=== PATIENT | female | born 1945 | race African-American/Black ===

== ENCOUNTER 2023-11-02 06:14 | Day surgery (SDC) | payer OTHER ==
[2023-10-28 14:36] VITALS: BMI 26.2
[2023-11-02 09:36] LABS: BASO % 0.5 % (0-2.0); EOS % 4.8 % (0-4.5); HEMATOCRIT 35.9 % (32.4-45.2); HEMOGLOBIN 12.1 GM/dL (10.7-15.3); LYMPH % 32.5 % (8-40); MCH 29.6 pg (25.7-33.7); MCHC 33.6 g/dl (32.0-36.0); MEAN PLT VOLUME 8.9 fl (7.5-11.1); MONO % 12.8 % (3.8-10.2); NEUT % 49.4 % (42.8-82.8); PLATELET COUNT 202 10^3/uL (134-434); RBC 4.08 M/mm3 (3.60-5.2); RDW 14.6 % (11.6-15.6); WHITE BLOOD COUNT 6.6 K/mm3 (4.0-10.0)
[2023-11-02 09:38] LABS: INR 1.16 (0.83-1.09); PROTHROMBIN TIME (PATIENT) 13.1 SEC (9.7-13.0)
[2023-11-02 09:58] LABS: CALCIUM 8.9 mg/dL (8.5-10.1)
[2023-11-02 09:59] LABS: BLOOD UREA NITROGEN 9.4 mg/dL (7-18)
[2023-11-02 10:02] LABS: CREATININE 0.7 mg/dL (0.55-1.3)
[2023-11-02] MEDS ORDERED: MIDAZOLAM HCL 2 MG/2 ML SINGLE DOSE VIAL ONE (12:15)
[2023-11-02] MEDS ORDERED: FENTANYL CITRATE/PF 50 MCG/ML VIAL ONE (12:15)
[2023-11-02] MEDS: FENTANYL CITRATE/PF 50 MCG/ML VIAL IVPUSH ONE (12:16)
[2023-11-02] MEDS: MIDAZOLAM HCL 2 MG/2 ML SINGLE DOSE VIAL IVPUSH ONE (12:16)
[2023-11-02 19:35] VITALS: RESP 20; TEMP 97.2
[2023-11-02 19:44] VITALS: BP 134/67; PULSE 69
== END 2023-11-02 14:30 | disposition home or self-care (01) ==
LOC: JRADIR 06:14
PROVIDERS: ATTEND Internal Medicine Hematology & Oncology
PROC: 0JH63WZ Insertion of Totally Implantable Vascular Access Device into Chest Subcutaneous Tissue and Fascia, Percutaneous Approach (ICD-10-PCS; principal; 2023-11-02)
DX: C25.9 Malignant neoplasm of pancreas, unspecified (principal)
CPT/HCPCS: 36561; C1788; 36415; 80048; 85025; 85610

== ENCOUNTER 2023-11-09 09:53 | Day surgery (SDC) | payer OTHER ==
[2023-11-09] MEDS: LIDOCAINE 2.5%/PRILOCAINE 2.5% (5 Gram/TUBE) TP ONE (10:30)
[2023-11-09 10:41] LABS: BASO % 0.4 % (0-2.0); EOS % 3.6 % (0-4.5); HEMATOCRIT 35.8 % (32.4-45.2); HEMOGLOBIN 12.5 GM/dL (10.7-15.3); LYMPH % 35.2 % (8-40); MCH 30.2 pg (25.7-33.7); MCHC 34.8 g/dl (32.0-36.0); MEAN PLT VOLUME 8.7 fl (7.5-11.1); MONO % 12.3 % (3.8-10.2); NEUT % 48.5 % (42.8-82.8); PLATELET COUNT 195 10^3/uL (134-434); RBC 4.12 M/mm3 (3.60-5.2); RDW 14.7 % (11.6-15.6); WHITE BLOOD COUNT 5.9 K/mm3 (4.0-10.0)
[2023-11-09] MEDS: SODIUM CHLORIDE 250 ML IV ONE (10:50)
[2023-11-09] MEDS: PALONOSETRON HCL 0.25 MG/5 ML VIAL IVPUSH ONE (11:35)
[2023-11-09] MEDS: FOSAPREPITANT DIMEGLUMINE 150 MG in SODIUM CHLORIDE 145 ML IVPB ONE (11:36)
[2023-11-09] MEDS: DEXAMETHASONE SODIUM PHOSPHATE 10 MG, DIPHENHYDRAMINE 25 MG in SODIUM CHLORIDE 100 ML IVPB ONE (12:06)
[2023-11-09 12:29] LABS: BLOOD UREA NITROGEN 10.4 mg/dL (7-18)
[2023-11-09 12:32] LABS: CREATININE 0.6 mg/dL (0.55-1.3); URIC ACID 5.8 mg/dL (2.6-7.2)
[2023-11-09 12:34] LABS: BILIRUBIN,TOTAL 1.5 mg/dL (0.2-1); TOT PROT 6.9 g/dl (6.4-8.2)
[2023-11-09] MEDS: ATROPINE SO4 0.4 MG/1 ML VIAL IVPUSH ONE (15:05)
[2023-11-09] MEDS: LEUCOVORIN IVPB ONE (15:09)
[2023-11-09] MEDS: WATER IVPB ONE (15:09)
[2023-11-09] MEDS: IRINOTECAN HCL 270 MG in DEXTROSE 5%-WATER - 500 ML IVPB ONE (15:09)
[2023-11-09] MEDS: DEXTROSE 5% IVPB ONE (15:09)
[2023-11-09 15:49] VITALS: RESP 20; TEMP 98.3
[2023-11-09] MEDS: KCL 10 MEQ IVPB 10 MEQ/100 ML INFUS.BAG IVPB SCH (17:16)
[2023-11-09] MEDS: FLUOROURACIL IV ONE (17:21)
[2023-11-09] MEDS: SODIUM CHLORIDE IV ONE (17:21)
[2023-11-09] MEDS: PORTA CATH FLUSH 10 ML IVPUSH PRN (17:21)
[2023-11-09 19:07] VITALS: BP 142/76; PULSE 64
== END 2023-11-09 19:14 | disposition home or self-care (01) ==
LOC: JONCCHEMO 09:53 → J7W 09:57 → JONCCHEMO 19:14
PROVIDERS: ATTEND Internal Medicine Hematology & Oncology
DX: Z51.11 Encounter for antineoplastic chemotherapy (principal); C25.9 Malignant neoplasm of pancreas, unspecified
CPT/HCPCS: 36415; 80053; 83735; 84550; 85025; 96366; 96367; 96375; 96413; 96415; 96417; G0498; J1453; J2469; J9206; J9263

== ENCOUNTER 2023-11-11 15:07 | Day surgery (SDC) | payer OTHER ==
[~2023-11-11 15:07] MED LIST: KCL 10 MEQ IVPB 10 MEQ/100 ML INFUS.BAG IVPB SCH
[2023-11-11] MEDS: D5-NS + 20 MEQ KCL - 10 MEQ/500 ML INFUS.BAG IV ONE (15:30)
[2023-11-11 16:41] VITALS: RESP 20; TEMP 98.3
[2023-11-11 17:21] VITALS: BP 157/70; PULSE 56
[2023-11-11] MEDS ORDERED: PORTA CATH FLUSH 10 ML IVPUSH PRN (17:21)
[2023-11-11] MEDS: PORTA CATH FLUSH 10 ML IVPUSH PRN (17:22)
== END 2023-11-11 17:31 | disposition home or self-care (01) ==
LOC: JONCCHEMO 15:07 → J7W 15:08 → JONCCHEMO 17:31
PROVIDERS: ATTEND Internal Medicine Hematology & Oncology
PROC: 3E0437Z Introduction of Electrolytic and Water Balance Substance into Central Vein, Percutaneous Approach (ICD-10-PCS; principal; 2023-11-11)
DX: C25.9 Malignant neoplasm of pancreas, unspecified (principal); Z76.89 Persons encountering health services in other specified circumstances

== ENCOUNTER 2023-11-23 11:56 | Day surgery (SDC) | payer OTHER ==
[2023-11-23 12:59] LABS: BASO % 0.9 % (0-2.0); EOS % 3.9 % (0-4.5); HEMATOCRIT 35.6 % (32.4-45.2); HEMOGLOBIN 12.2 GM/dL (10.7-15.3); LYMPH % 45.3 % (8-40); MCH 30.1 pg (25.7-33.7); MCHC 34.4 g/dl (32.0-36.0); MEAN CELL VOLUME 87.5 fl (80-96); MONO % 15.4 % (3.8-10.2); NEUT % 34.5 % (42.8-82.8); PLATELET COUNT 172 10^3/uL (134-434); RBC 4.07 M/mm3 (3.60-5.2); RDW 14.1 % (11.6-15.6)
[2023-11-23] MEDS: PORTA CATH FLUSH 10 ML IVPUSH PRN (13:14)
[2023-11-23] MEDS: SODIUM CHLORIDE 250 ML IV ONE (13:15)
[2023-11-23] MEDS: FOSAPREPITANT DIMEGLUMINE 150 MG in SODIUM CHLORIDE 145 ML IVPB ONE (13:42)
[2023-11-23 14:00] LABS: POTASSIUM 3.8 mmol/L (3.5-5.1)
[2023-11-23 14:04] LABS: ALBUMIN 3.3 g/dl (3.4-5.0); CALCIUM 9.3 mg/dL (8.5-10.1)
[2023-11-23 14:05] LABS: BLOOD UREA NITROGEN 11.7 mg/dL (7-18)
[2023-11-23 14:07] LABS: CREATININE 0.8 mg/dL (0.55-1.3)
[2023-11-23] MEDS: DEXAMETHASONE SODIUM PHOSPHATE 10 MG, DIPHENHYDRAMINE 25 MG in SODIUM CHLORIDE 100 ML IVPB ONE (14:44)
[2023-11-23] MEDS: PALONOSETRON HCL 0.25 MG/5 ML VIAL IVPUSH ONE (14:45)
[2023-11-23] MEDS: ATROPINE SO4 0.4 MG/1 ML VIAL IVPUSH ONE (15:14)
[2023-11-23 17:02] VITALS: RESP 20; TEMP 98.6
[2023-11-23] MEDS: LEUCOVORIN IVPB ONE (17:25)
[2023-11-23] MEDS: DEXTROSE 5% IVPB ONE (17:25)
[2023-11-23] MEDS: WATER IVPB ONE (17:25)
[2023-11-23] MEDS: IRINOTECAN HCL 270 MG in DEXTROSE 5%-WATER - 500 ML IVPB ONE (17:26)
[2023-11-23] MEDS: FLUOROURACIL 4,350 MG in SODIUM CHLORIDE 5 ML CP ONE (19:17)
[2023-11-23 20:05] VITALS: BP 147/92; PULSE 70
== END 2023-11-23 19:59 | disposition home or self-care (01) ==
LOC: J7W 11:56 → JONCCHEMO 11:56
PROVIDERS: ATTEND Internal Medicine Hematology & Oncology
DX: Z51.11 Encounter for antineoplastic chemotherapy (principal); C25.9 Malignant neoplasm of pancreas, unspecified
CPT/HCPCS: 36415; 80053; 83735; 85025; 96367; 96368; 96375; 96413; 96415; 96417; G0498; J1453; J2469; J9206; J9263

== ENCOUNTER 2023-11-25 15:05 | Day surgery (SDC) | payer OTHER ==
[2023-11-25] MEDS: D5-NS + 20 MEQ KCL - 10 MEQ/500 ML INFUS.BAG IV ONE (14:57)
[2023-11-25] MEDS: PORTA CATH FLUSH 10 ML IVPUSH PRN (17:35)
[2023-11-25 17:56] VITALS: RESP 20; TEMP 98
[2023-11-25 17:58] VITALS: BP 125/62; PULSE 60
== END 2023-11-25 17:50 | disposition home or self-care (01) ==
LOC: JONCCHEMO 15:05 → J7W 15:06 → JONCCHEMO 17:50
PROVIDERS: ATTEND Internal Medicine Hematology & Oncology
PROC: 3E0337Z Introduction of Electrolytic and Water Balance Substance into Peripheral Vein, Percutaneous Approach (ICD-10-PCS; principal; 2023-11-25)
DX: Z76.89 Persons encountering health services in other specified circumstances (principal); C25.9 Malignant neoplasm of pancreas, unspecified
CPT/HCPCS: 96360; 96361

== ENCOUNTER 2023-11-26 17:35 | Day surgery (SDC) | payer OTHER ==
[2023-11-26] MEDS: TBO-FILGRASTIM 300 MCG/0.5 ML DISP.SYRINGE SQ ONE (17:37)
[2023-11-26 17:49] VITALS: BP 137/77; PULSE 81; RESP 20; TEMP 98.3
== END 2023-11-26 17:50 | disposition home or self-care (01) ==
LOC: J7W 17:35 → JONCCHEMO 17:35
PROVIDERS: ATTEND Internal Medicine Hematology & Oncology
PROC: 3E013GC Introduction of Other Therapeutic Substance into Subcutaneous Tissue, Percutaneous Approach (ICD-10-PCS; principal; 2023-11-26)
DX: Z76.89 Persons encountering health services in other specified circumstances (principal); C25.9 Malignant neoplasm of pancreas, unspecified
CPT/HCPCS: 96372; J1447

== ENCOUNTER 2023-12-07 10:03 | Day surgery (SDC) | payer OTHER ==
[~2023-12-07 10:03] MED LIST changes: +ATROPINE SO4 0.4 MG/1 ML VIAL IVPUSH ONE; +DEXAMETHASONE SODIUM PHOSPHATE 10 MG, DIPHENHYDRAMINE 25 MG in SODIUM CHLORIDE 100 ML IVPB ONE; +FOSAPREPITANT DIMEGLUMINE 150 MG in SODIUM CHLORIDE 145 ML IVPB ONE; -KCL 10 MEQ IVPB 10 MEQ/100 ML INFUS.BAG IVPB SCH; +PALONOSETRON HCL 0.25 MG/5 ML VIAL IVPUSH ONE; +SODIUM CHLORIDE 250 ML IV ONE
[2023-12-07 11:04] LABS: BASO % 0.9 % (0-2.0); EOS % 2.2 % (0-4.5); HEMATOCRIT 36.2 % (32.4-45.2); LYMPH % 53.9 % (8-40); MCH 29.3 pg (25.7-33.7); MCHC 33.1 g/dl (32.0-36.0); MEAN CELL VOLUME 88.6 fl (80-96); MEAN PLT VOLUME 8.2 fl (7.5-11.1); MONO % 13.6 % (3.8-10.2); NEUT % 29.4 % (42.8-82.8); PLATELET COUNT 149 10^3/uL (134-434); RBC 4.09 M/mm3 (3.60-5.2); RDW 13.6 % (11.6-15.6); WHITE BLOOD COUNT 3.3 K/mm3 (4.0-10.0)
[2023-12-07 11:28] LABS: POTASSIUM 3.6 mmol/L (3.5-5.1)
[2023-12-07 11:30] LABS: CALCIUM 8.8 mg/dL (8.5-10.1)
[2023-12-07] MEDS ORDERED: TBO-FILGRASTIM 300 MCG/0.5 ML DISP.SYRINGE SQ SCH (11:30)
[2023-12-07 11:31] LABS: ALBUMIN 3.3 g/dl (3.4-5.0); BLOOD UREA NITROGEN 9.8 mg/dL (7-18); MAGNESIUM 1.8 mg/dL (1.8-2.4)
[2023-12-07 11:34] LABS: CREATININE 0.7 mg/dL (0.55-1.3)
[2023-12-07 11:35] LABS: BILIRUBIN,TOTAL 0.6 mg/dL (0.2-1)
[2023-12-07] MEDS: TBO-FILGRASTIM 480 MCG/0.8 ML DISP.SYRIN SQ ONE (11:59)
[2023-12-07] MEDS ORDERED: LEUCOVORIN IVPB ONE (12:00)
[2023-12-07] MEDS ORDERED: DEXTROSE 5% IVPB ONE (12:00)
[2023-12-07] MEDS ORDERED: WATER IVPB ONE (12:00)
[2023-12-07] MEDS ORDERED: IRINOTECAN HCL 270 MG in DEXTROSE 5%-WATER - 500 ML IVPB ONE (12:30)
[2023-12-07] MEDS ORDERED: FLUOROURACIL CP ONE (14:00)
[2023-12-07] MEDS ORDERED: SODIUM CHLORIDE CP ONE (14:00)
[2023-12-07 14:14] VITALS: BP 149/80; PULSE 71; RESP 20; TEMP 98.2
== END 2023-12-07 12:15 | disposition home or self-care (01) ==
LOC: J7W 10:03 → JONCCHEMO 10:03
PROVIDERS: ATTEND Internal Medicine Hematology & Oncology
PROC: 3E013GC Introduction of Other Therapeutic Substance into Subcutaneous Tissue, Percutaneous Approach (ICD-10-PCS; principal; 2023-12-07)
DX: C25.9 Malignant neoplasm of pancreas, unspecified (principal); Z76.89 Persons encountering health services in other specified circumstances
CPT/HCPCS: 36415; 80053; 83735; 85025; 96372; J1447

== ENCOUNTER 2023-12-14 09:12 | Day surgery (SDC) | payer OTHER ==
[2023-12-14 09:40] LABS: HEMATOCRIT 36.7 % (32.4-45.2); HEMOGLOBIN 12.2 GM/dL (10.7-15.3); MCH 29.3 pg (25.7-33.7); MCHC 33.3 g/dl (32.0-36.0); MEAN CELL VOLUME 88.2 fl (80-96); MEAN PLT VOLUME 8.7 fl (7.5-11.1); PLATELET COUNT 203 10^3/uL (134-434); RBC 4.17 M/mm3 (3.60-5.2); RDW 14.6 % (11.6-15.6); WHITE BLOOD COUNT 4.4 K/mm3 (4.0-10.0)
[2023-12-14 10:13] LABS: POTASSIUM 3.9 mmol/L (3.5-5.1)
[2023-12-14 10:15] LABS: ALBUMIN 3.4 g/dl (3.4-5.0); BLOOD UREA NITROGEN 10.5 mg/dL (7-18); CALCIUM 9.3 mg/dL (8.5-10.1); MAGNESIUM 1.9 mg/dL (1.8-2.4)
[2023-12-14 10:20] LABS: BILIRUBIN,TOTAL 0.5 mg/dL (0.2-1)
[2023-12-14 10:26] LABS: CREATININE 0.7 mg/dL (0.55-1.3)
[2023-12-14 10:29] LABS: ANISOCYTOSIS 0; MACROCYTOSIS 0
[2023-12-14 10:30] LABS: PLATELET ESTIMATE ADEQUATE
[2023-12-14] MEDS: PORTA CATH FLUSH 10 ML IVPUSH PRN (11:05)
[2023-12-14] MEDS: SODIUM CHLORIDE 250 ML IV ONE (11:06)
[2023-12-14] MEDS: FOSAPREPITANT DIMEGLUMINE 150 MG in SODIUM CHLORIDE 145 ML IVPB ONE (11:25)
[2023-12-14] MEDS: PALONOSETRON HCL 0.25 MG/5 ML VIAL IVPUSH ONE (12:08)
[2023-12-14] MEDS: DEXAMETHASONE SODIUM PHOSPHATE 10 MG, DIPHENHYDRAMINE 25 MG in SODIUM CHLORIDE 100 ML IVPB ONE (12:08)
[2023-12-14] MEDS: ATROPINE SO4 0.4 MG/1 ML VIAL IVPUSH ONE (15:31)
[2023-12-14] MEDS: LEUCOVORIN IVPB ONE (15:32)
[2023-12-14] MEDS: DEXTROSE 5% IVPB ONE (15:32)
[2023-12-14] MEDS: WATER IVPB ONE (15:32)
[2023-12-14] MEDS: IRINOTECAN HCL 270 MG in DEXTROSE 5%-WATER - 500 ML IVPB ONE (15:35)
[2023-12-14 16:12] VITALS: RESP 20; TEMP 98.4
[2023-12-14] MEDS: FLUOROURACIL CP ONE (17:47)
[2023-12-14] MEDS: SODIUM CHLORIDE CP ONE (17:47)
[2023-12-14 18:06] VITALS: BP 112/79; PULSE 69
== END 2023-12-14 18:17 | disposition home or self-care (01) ==
LOC: JONCCHEMO 09:12 → J7W 09:14 → JONCCHEMO 18:17
PROVIDERS: ATTEND Internal Medicine Hematology & Oncology
DX: Z51.11 Encounter for antineoplastic chemotherapy (principal); C25.9 Malignant neoplasm of pancreas, unspecified
CPT/HCPCS: 36415; 80053; 83735; 85025; 96367; 96368; 96375; 96413; 96415; 96417; G0498; J1453; J2469; J9206; J9263

== ENCOUNTER 2023-12-16 15:10 | Day surgery (SDC) | payer OTHER ==
[2023-12-16] MEDS: D5-NS + 20 MEQ KCL - 10 MEQ/500 ML INFUS.BAG IV ONE (15:17)
[2023-12-16 16:14] VITALS: RESP 20; TEMP 98.4
[2023-12-16 17:01] VITALS: BP 128/78; PULSE 62
[2023-12-16] MEDS: PORTA CATH FLUSH 10 ML IVPUSH PRN (17:20)
== END 2023-12-16 17:29 | disposition home or self-care (01) ==
LOC: JONCCHEMO 15:10 → J7W 15:29 → JONCCHEMO 17:29
PROVIDERS: ATTEND Internal Medicine Hematology & Oncology
PROC: 3E0437Z Introduction of Electrolytic and Water Balance Substance into Central Vein, Percutaneous Approach (ICD-10-PCS; principal; 2023-12-16)
DX: C25.9 Malignant neoplasm of pancreas, unspecified (principal); Z76.89 Persons encountering health services in other specified circumstances
CPT/HCPCS: 96360; 96361

== ENCOUNTER 2023-12-17 14:40 | Day surgery (SDC) | payer OTHER ==
[2023-12-17] MEDS: TBO-FILGRASTIM 300 MCG/0.5 ML DISP.SYRINGE SQ ONE (14:49)
[2023-12-17 17:24] VITALS: BP 130/72; PULSE 81; RESP 20; TEMP 98.7
== END 2023-12-17 15:00 | disposition home or self-care (01) ==
LOC: J7W 14:40 → JONCCHEMO 14:40
PROVIDERS: ATTEND Internal Medicine Hematology & Oncology
PROC: 3E013GC Introduction of Other Therapeutic Substance into Subcutaneous Tissue, Percutaneous Approach (ICD-10-PCS; principal; 2023-12-17)
DX: C25.9 Malignant neoplasm of pancreas, unspecified (principal); Z76.89 Persons encountering health services in other specified circumstances
CPT/HCPCS: 96372; J1447

== ENCOUNTER 2023-12-27 10:08 | Day surgery (SDC) | payer OTHER ==
[~2023-12-27 10:08] MED LIST changes: +DEXTROSE 5% IVPB ONE; +FLUOROURACIL CP ONE; +IRINOTECAN HCL 270 MG in DEXTROSE 5%-WATER - 500 ML IVPB ONE; +LEUCOVORIN IVPB ONE; +SODIUM CHLORIDE CP ONE; +WATER IVPB ONE
[2023-12-27 10:25] LABS: BASO % 0.6 % (0-2.0); EOS % 2.9 % (0-4.5); HEMATOCRIT 34.7 % (32.4-45.2); HEMOGLOBIN 11.5 GM/dL (10.7-15.3); MCH 29.3 pg (25.7-33.7); MCHC 33.2 g/dl (32.0-36.0); MEAN CELL VOLUME 88.2 fl (80-96); MEAN PLT VOLUME 7.9 fl (7.5-11.1); MONO % 19.6 % (3.8-10.2); NEUT % 30.9 % (42.8-82.8); PLATELET COUNT 187 10^3/uL (134-434); RBC 3.93 M/mm3 (3.60-5.2); RDW 14.5 % (11.6-15.6); WHITE BLOOD COUNT 3.4 K/mm3 (4.0-10.0)
[2023-12-27 10:43] LABS: POTASSIUM 3.9 mmol/L (3.5-5.1)
[2023-12-27 10:45] LABS: CALCIUM 8.9 mg/dL (8.5-10.1)
[2023-12-27 10:46] LABS: ALBUMIN 3.5 g/dl (3.4-5.0); BLOOD UREA NITROGEN 10.7 mg/dL (7-18); MAGNESIUM 1.5 mg/dL (1.8-2.4)
[2023-12-27 10:49] LABS: CREATININE 0.8 mg/dL (0.55-1.3)
[2023-12-27 10:50] LABS: BILIRUBIN,TOTAL 0.5 mg/dL (0.2-1)
[2023-12-27] MEDS: SODIUM CHLORIDE 250 ML IV ONE (10:52)
[2023-12-27 11:14] LABS: INR 1.09 (0.83-1.09); PROTHROMBIN TIME (PATIENT) 12.5 SEC (9.7-13.0)
[2023-12-27 11:16] LABS: ACTIVATED PTT 33.8 SECONDS (25.2-36.5)
[2023-12-27] MEDS: FOSAPREPITANT DIMEGLUMINE 150 MG in SODIUM CHLORIDE 145 ML IVPB ONE (11:25)
[2023-12-27] MEDS: DEXAMETHASONE SODIUM PHOSPHATE 10 MG, DIPHENHYDRAMINE 25 MG in SODIUM CHLORIDE 100 ML IVPB ONE (12:04)
[2023-12-27] MEDS: PALONOSETRON HCL 0.25 MG/5 ML VIAL IVPUSH ONE (12:40)
[2023-12-27] MEDS: WATER IVPB ONE (15:05)
[2023-12-27] MEDS: LEUCOVORIN IVPB ONE (15:05)
[2023-12-27] MEDS: ATROPINE SO4 0.4 MG/1 ML VIAL IVPUSH ONE (15:05)
[2023-12-27] MEDS: IRINOTECAN HCL 270 MG in DEXTROSE 5%-WATER - 500 ML IVPB ONE (15:05)
[2023-12-27] MEDS: DEXTROSE 5% IVPB ONE (15:05)
[2023-12-27 15:25] VITALS: RESP 20; TEMP 98.2
[2023-12-27] MEDS: MAGNESIUM 2GM/50ML STERILE WATER IVPB IVPB ONE (17:20)
[2023-12-27] MEDS: PORTA CATH FLUSH 10 ML IVPUSH PRN (17:20)
[2023-12-27] MEDS: FLUOROURACIL CP ONE (18:10)
[2023-12-27] MEDS: SODIUM CHLORIDE CP ONE (18:10)
[2023-12-27 18:12] VITALS: BP 145/77; PULSE 65
== END 2023-12-27 18:31 | disposition home or self-care (01) ==
LOC: JONCCHEMO 10:08 → J7W 10:09 → JONCCHEMO 18:31
PROVIDERS: ATTEND Internal Medicine Hematology & Oncology
DX: Z51.11 Encounter for antineoplastic chemotherapy (principal); C25.1 Malignant neoplasm of body of pancreas
CPT/HCPCS: 36415; 80053; 83735; 85025; 85610; 85730; 96367; 96375; 96413; 96415; 96417; G0498; J1453; J2469; J9206; J9263

== ENCOUNTER 2023-12-29 12:50 | Day surgery (SDC) | payer OTHER ==
[2023-12-29] MEDS: D5-NS + 20 MEQ KCL - 10 MEQ/500 ML INFUS.BAG IV ONE (12:50)
[2023-12-29 16:21] VITALS: PULSE 69; RESP 20; TEMP 98.5
[2023-12-29] MEDS: PORTA CATH FLUSH 10 ML IVPUSH PRN (16:22)
[2023-12-31 07:44] VITALS: BP 140/80
== END 2023-12-29 16:23 | disposition home or self-care (01) ==
LOC: JONCCHEMO 12:50 → J7W 12:50 → JONCCHEMO 16:23
PROVIDERS: ATTEND Internal Medicine Hematology & Oncology
PROC: 3E0437Z Introduction of Electrolytic and Water Balance Substance into Central Vein, Percutaneous Approach (ICD-10-PCS; principal; 2023-12-29)
DX: C25.9 Malignant neoplasm of pancreas, unspecified (principal); Z76.89 Persons encountering health services in other specified circumstances
CPT/HCPCS: 96360; 96361

== ENCOUNTER 2023-12-31 07:25 | Day surgery (SDC) | payer OTHER ==
[2023-12-31] MEDS: TBO-FILGRASTIM 300 MCG/0.5 ML DISP.SYRINGE SQ ONE (07:10)
[2023-12-31 15:24] VITALS: BP 137/86; PULSE 81; RESP 16; TEMP 97.9
== END 2023-12-31 08:20 | disposition home or self-care (01) ==
LOC: J7W 07:25 → JONCCHEMO 07:25
PROVIDERS: ATTEND Internal Medicine Hematology & Oncology
PROC: 3E013GC Introduction of Other Therapeutic Substance into Subcutaneous Tissue, Percutaneous Approach (ICD-10-PCS; principal; 2023-12-31)
DX: C25.9 Malignant neoplasm of pancreas, unspecified (principal); Z76.89 Persons encountering health services in other specified circumstances
CPT/HCPCS: 96372; J1447

== ENCOUNTER 2024-01-03 09:25 | Day surgery (SDC) | payer OTHER ==
[2024-01-03] MEDS: TBO-FILGRASTIM 300 MCG/0.5 ML DISP.SYRINGE SQ ONE (09:24)
[2024-01-03 14:51] VITALS: BP 152/91; PULSE 82; RESP 20; TEMP 98.1
== END 2024-01-03 09:45 | disposition home or self-care (01) ==
LOC: JONCCHEMO 09:25 → J7W 09:26 → JONCCHEMO 09:45
PROVIDERS: ATTEND Internal Medicine Hematology & Oncology
PROC: 3E013GC Introduction of Other Therapeutic Substance into Subcutaneous Tissue, Percutaneous Approach (ICD-10-PCS; principal; 2024-01-03)
DX: C25.1 Malignant neoplasm of body of pancreas (principal); Z76.89 Persons encountering health services in other specified circumstances
CPT/HCPCS: 96372; J1447

== ENCOUNTER 2024-01-11 09:30 | Day surgery (SDC) | payer OTHER ==
[2024-01-11 10:08] LABS: BASO % 0.5 % (0-2.0); EOS % 2.3 % (0-4.5); HEMATOCRIT 36.1 % (32.4-45.2); HEMOGLOBIN 11.9 GM/dL (10.7-15.3); LYMPH % 44.3 % (8-40); MCH 29.5 pg (25.7-33.7); MCHC 32.9 g/dl (32.0-36.0); MEAN CELL VOLUME 89.7 fl (80-96); MEAN PLT VOLUME 8.3 fl (7.5-11.1); NEUT % 35.9 % (42.8-82.8); PLATELET COUNT 142 10^3/uL (134-434); RBC 4.02 M/mm3 (3.60-5.2); RDW 15.3 % (11.6-15.6); WHITE BLOOD COUNT 3.3 K/mm3 (4.0-10.0)
[2024-01-11] MEDS: SODIUM CHLORIDE 250 ML IV ONE (10:14)
[2024-01-11 10:30] LABS: POTASSIUM 3.9 mmol/L (3.5-5.1)
[2024-01-11 10:32] LABS: ALBUMIN 3.5 g/dl (3.4-5.0); CALCIUM 9.2 mg/dL (8.5-10.1); MAGNESIUM 1.9 mg/dL (1.8-2.4)
[2024-01-11 10:35] LABS: CREATININE 0.9 mg/dL (0.55-1.3)
[2024-01-11 10:36] LABS: BILIRUBIN,TOTAL 0.3 mg/dL (0.2-1); TOT PROT 6.9 g/dl (6.4-8.2)
[2024-01-11] MEDS: FOSAPREPITANT DIMEGLUMINE 150 MG in SODIUM CHLORIDE 145 ML IVPB ONE (10:53)
[2024-01-11 11:21] VITALS: RESP 20; TEMP 98.7
[2024-01-11] MEDS: DEXAMETHASONE SODIUM PHOSPHATE 10 MG, DIPHENHYDRAMINE 25 MG in SODIUM CHLORIDE 100 ML IVPB ONE (11:40)
[2024-01-11] MEDS: PALONOSETRON HCL 0.25 MG/5 ML VIAL IVPUSH ONE (11:48)
[2024-01-11] MEDS: ATROPINE SO4 0.4 MG/1 ML VIAL IVPUSH ONE (14:46)
[2024-01-11] MEDS: LEUCOVORIN IVPB ONE (14:48)
[2024-01-11] MEDS: WATER IVPB ONE (14:48)
[2024-01-11] MEDS: DEXTROSE 5% IVPB ONE (14:48)
[2024-01-11] MEDS: IRINOTECAN HCL 270 MG in DEXTROSE 5%-WATER - 500 ML IVPB ONE (14:49)
[2024-01-11] MEDS: FLUOROURACIL 4,275 MG in SODIUM CHLORIDE 6.5 ML CP ONE (17:03)
[2024-01-11] MEDS: PORTA CATH FLUSH 10 ML IVPUSH PRN (17:05)
[2024-01-11 17:21] VITALS: BP 121/82; PULSE 64
== END 2024-01-11 17:45 | disposition home or self-care (01) ==
LOC: JONCCHEMO 09:30 → J7W 09:40 → JONCCHEMO 17:45
PROVIDERS: ATTEND Internal Medicine Hematology & Oncology
DX: Z51.11 Encounter for antineoplastic chemotherapy (principal); C25.1 Malignant neoplasm of body of pancreas
CPT/HCPCS: 36415; 80053; 82306; 83735; 85025; 96367; 96368; 96375; 96413; 96415; 96416; 96417; G0498; J1453; J2469; J9206; J9263

== ENCOUNTER 2024-01-13 14:00 | Day surgery (SDC) | payer OTHER ==
[2024-01-13] MEDS: D5-NS + 20 MEQ KCL - 10 MEQ/500 ML INFUS.BAG IV ONE (14:17)
[2024-01-13] MEDS: PORTA CATH FLUSH 10 ML IVPUSH PRN (16:25)
[2024-01-13 16:48] VITALS: RESP 20; TEMP 98.2
[2024-01-13 16:57] VITALS: BP 139/73; PULSE 63
== END 2024-01-13 16:35 | disposition home or self-care (01) ==
LOC: J7W 14:00 → JONCCHEMO 14:00
PROVIDERS: ATTEND Internal Medicine Hematology & Oncology
PROC: 3E013GC Introduction of Other Therapeutic Substance into Subcutaneous Tissue, Percutaneous Approach (ICD-10-PCS; principal; 2024-01-13)
DX: C25.1 Malignant neoplasm of body of pancreas (principal); Z76.89 Persons encountering health services in other specified circumstances
CPT/HCPCS: 96372

== ENCOUNTER 2024-01-14 14:57 | Day surgery (SDC) | payer OTHER ==
[2024-01-14] MEDS: TBO-FILGRASTIM 300 MCG/0.5 ML DISP.SYRINGE SQ ONE (14:59)
[2024-01-14 16:03] VITALS: BP 149/85; PULSE 71; RESP 20; TEMP 98.1
== END 2024-01-14 15:25 | disposition home or self-care (01) ==
LOC: J7W 14:57 → JONCCHEMO 14:57
PROVIDERS: ATTEND Internal Medicine Hematology & Oncology
PROC: 3E013GC Introduction of Other Therapeutic Substance into Subcutaneous Tissue, Percutaneous Approach (ICD-10-PCS; principal; 2024-01-14)
DX: C25.1 Malignant neoplasm of body of pancreas (principal); Z76.89 Persons encountering health services in other specified circumstances
CPT/HCPCS: 96372; J1447

== ENCOUNTER 2024-01-17 10:00 | Day surgery (SDC) | payer OTHER ==
[2024-01-17] MEDS: TBO-FILGRASTIM 300 MCG/0.5 ML DISP.SYRINGE SQ ONE (09:57)
[2024-01-17 14:20] VITALS: BP 126/77; PULSE 78; RESP 20; TEMP 98.6
== END 2024-01-17 10:20 | disposition home or self-care (01) ==
LOC: JONCCHEMO 10:00 → J7W 10:01 → JONCCHEMO 10:20
PROVIDERS: ATTEND Internal Medicine Hematology & Oncology
PROC: 3E013GC Introduction of Other Therapeutic Substance into Subcutaneous Tissue, Percutaneous Approach (ICD-10-PCS; principal; 2024-01-17)
DX: C25.1 Malignant neoplasm of body of pancreas (principal); D70.1 Agranulocytosis secondary to cancer chemotherapy
CPT/HCPCS: 96372; J1447

== ENCOUNTER 2024-01-25 09:50 | Day surgery (SDC) | payer OTHER ==
[~2024-01-25 09:50] MED LIST changes: -DEXTROSE 5% IVPB ONE; -FLUOROURACIL CP ONE; -IRINOTECAN HCL 270 MG in DEXTROSE 5%-WATER - 500 ML IVPB ONE; -LEUCOVORIN IVPB ONE; -SODIUM CHLORIDE CP ONE; -WATER IVPB ONE
[2024-01-25] MEDS: SODIUM CHLORIDE 250 ML IV ONE (10:20)
[2024-01-25 10:34] LABS: HEMATOCRIT 34.6 % (32.4-45.2); HEMOGLOBIN 11.7 GM/dL (10.7-15.3); MCHC 33.8 g/dl (32.0-36.0); MEAN CELL VOLUME 88.9 fl (80-96); MEAN PLT VOLUME 7.9 fl (7.5-11.1); PLATELET COUNT 165 10^3/uL (134-434); RDW 16.4 % (11.6-15.6); WHITE BLOOD COUNT 3.3 K/mm3 (4.0-10.0)
[2024-01-25 10:53] LABS: CHLORIDE 112 mmol/L (98-107); SODIUM 142 mmol/L (136-145)
[2024-01-25 10:55] LABS: ALBUMIN 3.5 g/dl (3.4-5.0); CALCIUM 9.3 mg/dL (8.5-10.1)
[2024-01-25 10:56] LABS: ANION GAP 6 mmol/L (4-13); BLOOD UREA NITROGEN 11.5 mg/dL (7-18); CO2 24 mmol/L (21-32); GLUCOSE,RANDOM 86 mg/dL (74-106); MAGNESIUM 1.8 mg/dL (1.8-2.4)
[2024-01-25 10:59] LABS: CREATININE 0.8 mg/dL (0.55-1.3); SGOT/AST 29 U/L (15-37); SGPT/ALT 45 U/L (13-61)
[2024-01-25 11:00] LABS: BILIRUBIN,TOTAL 0.4 mg/dL (0.2-1)
[2024-01-25] MEDS: PORTA CATH FLUSH 10 ML IVPUSH PRN (11:00)
[2024-01-25 11:02] LABS: ALK PHOS 170 U/L (45-117)
[2024-01-25 11:55] LABS: ANISOCYTOSIS 0; MACROCYTOSIS 0
[2024-01-25] MEDS ORDERED: DEXTROSE 5% IVPB ONE (12:00)
[2024-01-25] MEDS ORDERED: WATER IVPB ONE (12:00)
[2024-01-25] MEDS ORDERED: IRINOTECAN HCL 270 MG in DEXTROSE 5%-WATER - 500 ML IVPB ONE (12:00)
[2024-01-25] MEDS ORDERED: LEUCOVORIN IVPB ONE (12:00)
[2024-01-25] MEDS: TBO-FILGRASTIM 300 MCG/0.5 ML DISP.SYRINGE SQ ONE (13:32)
[2024-01-25] MEDS ORDERED: FLUOROURACIL 4,275 MG in SODIUM CHLORIDE 6.5 ML CP ONE (14:00)
[2024-01-25 18:02] VITALS: BP 155/77; PULSE 66; RESP 16; TEMP 98.4
== END 2024-01-25 13:40 | disposition home or self-care (01) ==
LOC: JONCCHEMO 09:50 → J7W 09:55 → JONCCHEMO 13:40
PROVIDERS: ATTEND Internal Medicine Hematology & Oncology
PROC: 3E013GC Introduction of Other Therapeutic Substance into Subcutaneous Tissue, Percutaneous Approach (ICD-10-PCS; principal; 2024-01-25)
PROC: 3E0437Z Introduction of Electrolytic and Water Balance Substance into Central Vein, Percutaneous Approach (ICD-10-PCS; 2024-01-25)
DX: C25.1 Malignant neoplasm of body of pancreas (principal); D70.9 Neutropenia, unspecified; Z76.89 Persons encountering health services in other specified circumstances
CPT/HCPCS: 36415; 80053; 83735; 85025; 96360; 96372; J1447

== ENCOUNTER 2024-01-26 10:00 | Day surgery (SDC) | payer OTHER ==
[2024-01-26] MEDS: TBO-FILGRASTIM 300 MCG/0.5 ML DISP.SYRINGE SQ ONE (10:09)
[2024-01-26 12:24] VITALS: BP 150/95; PULSE 79; RESP 20; TEMP 97.8
== END 2024-01-26 10:25 | disposition home or self-care (01) ==
LOC: J7W 10:00 → JONCCHEMO 10:00
PROVIDERS: ATTEND Internal Medicine Hematology & Oncology
PROC: 3E013GC Introduction of Other Therapeutic Substance into Subcutaneous Tissue, Percutaneous Approach (ICD-10-PCS; principal; 2024-01-26)
DX: C25.1 Malignant neoplasm of body of pancreas (principal); D70.9 Neutropenia, unspecified
CPT/HCPCS: 96372; J1447

== ENCOUNTER 2024-01-27 08:00 | Day surgery (SDC) | payer OTHER ==
[2024-01-27] MEDS: TBO-FILGRASTIM 300 MCG/0.5 ML DISP.SYRINGE SQ ONE (08:19)
[2024-01-27 15:48] VITALS: BP 131/77; PULSE 89; RESP 20; TEMP 98.8
== END 2024-01-27 08:30 | disposition home or self-care (01) ==
LOC: JONCCHEMO 08:00 → J7W 08:08 → JONCCHEMO 08:30
PROVIDERS: ATTEND Internal Medicine Hematology & Oncology
PROC: 3E013GC Introduction of Other Therapeutic Substance into Subcutaneous Tissue, Percutaneous Approach (ICD-10-PCS; principal; 2024-01-27)
DX: C25.1 Malignant neoplasm of body of pancreas (principal); D70.9 Neutropenia, unspecified; Z76.89 Persons encountering health services in other specified circumstances
CPT/HCPCS: 96372; J1447

== ENCOUNTER 2024-02-01 10:10 | Day surgery (SDC) | payer OTHER ==
[2024-02-01] MEDS: SODIUM CHLORIDE 250 ML IV ONE (10:25)
[2024-02-01] MEDS: FOSAPREPITANT DIMEGLUMINE 150 MG in SODIUM CHLORIDE 145 ML IVPB ONE (10:52)
[2024-02-01] MEDS: PALONOSETRON HCL 0.25 MG/5 ML VIAL IVPUSH ONE (10:53)
[2024-02-01] MEDS: DEXAMETHASONE SODIUM PHOSPHATE 10 MG, DIPHENHYDRAMINE 25 MG in SODIUM CHLORIDE 100 ML IVPB ONE (11:27)
[2024-02-01] MEDS: ATROPINE SO4 0.4 MG/1 ML VIAL IVPUSH ONE (12:03)
[2024-02-01] MEDS: WATER IVPB ONE (14:24)
[2024-02-01] MEDS: LEUCOVORIN IVPB ONE (14:24)
[2024-02-01] MEDS: DEXTROSE 5% IVPB ONE (14:24)
[2024-02-01] MEDS: IRINOTECAN HCL 270 MG in DEXTROSE 5%-WATER - 500 ML IVPB ONE (14:47)
[2024-02-01 15:42] VITALS: RESP 20; TEMP 98.3
[2024-02-01] MEDS: FLUOROURACIL 4,275 MG in SODIUM CHLORIDE 6.5 ML CP ONE (16:46)
[2024-02-01 16:55] VITALS: BP 146/88; PULSE 74
== END 2024-02-01 17:23 | disposition home or self-care (01) ==
LOC: JONCCHEMO 10:10 → J7W 10:10 → JONCCHEMO 17:23
PROVIDERS: ATTEND Internal Medicine Hematology & Oncology
DX: Z51.11 Encounter for antineoplastic chemotherapy (principal); C25.1 Malignant neoplasm of body of pancreas
CPT/HCPCS: 96367; 96368; 96375; 96413; 96415; 96417; G0498; J1453; J2469; J9206; J9263

== ENCOUNTER 2024-02-03 15:15 | Day surgery (SDC) | payer OTHER ==
[2024-02-03] MEDS: D5-NS + 20 MEQ KCL - 10 MEQ/500 ML INFUS.BAG IV ONE (15:22)
[2024-02-03] MEDS: D5-NS + 20 MEQ KCL - 20 MEQ/1,000 ML INFUS.BAG IV ONE (15:22)
[2024-02-03 17:12] VITALS: RESP 20
[2024-02-03 17:20] VITALS: TEMP 98.8
[2024-02-03] MEDS: PORTA CATH FLUSH 10 ML IVPUSH PRN (17:25)
[2024-02-03 17:27] VITALS: BP 132/75; PULSE 59
== END 2024-02-03 17:45 | disposition home or self-care (01) ==
LOC: JONCCHEMO 15:15 → J7W 15:15 → JONCCHEMO 17:45
PROVIDERS: ATTEND Internal Medicine Hematology & Oncology
PROC: 3E0437Z Introduction of Electrolytic and Water Balance Substance into Central Vein, Percutaneous Approach (ICD-10-PCS; principal; 2024-02-03)
DX: C25.1 Malignant neoplasm of body of pancreas (principal); Z76.89 Persons encountering health services in other specified circumstances
CPT/HCPCS: 96360; 96361

== ENCOUNTER 2024-02-04 12:30 | Day surgery (SDC) | payer OTHER ==
[2024-02-04] MEDS: TBO-FILGRASTIM 300 MCG/0.5 ML DISP.SYRINGE SQ ONE (12:53)
[2024-02-04 14:03] VITALS: BP 135/85; PULSE 87; RESP 20; TEMP 99.2
== END 2024-02-04 13:15 | disposition home or self-care (01) ==
LOC: JONCCHEMO 12:30 → J7W 12:30 → JONCCHEMO 13:15
PROVIDERS: ATTEND Internal Medicine Hematology & Oncology
PROC: 3E013GC Introduction of Other Therapeutic Substance into Subcutaneous Tissue, Percutaneous Approach (ICD-10-PCS; principal; 2024-02-04)
DX: C25.1 Malignant neoplasm of body of pancreas (principal); Z76.89 Persons encountering health services in other specified circumstances
CPT/HCPCS: 96372; J1447

== ENCOUNTER 2024-02-07 11:56 | Day surgery (SDC) | payer OTHER ==
[2024-02-07] MEDS: TBO-FILGRASTIM 300 MCG/0.5 ML DISP.SYRINGE SQ ONE (12:05)
[2024-02-07 12:54] VITALS: BP 123/63; PULSE 78; RESP 20; TEMP 98.2
== END 2024-02-07 12:25 | disposition home or self-care (01) ==
LOC: J7W 11:56 → JONCCHEMO 11:56
PROVIDERS: ATTEND Internal Medicine Hematology & Oncology
PROC: 3E013GC Introduction of Other Therapeutic Substance into Subcutaneous Tissue, Percutaneous Approach (ICD-10-PCS; principal; 2024-02-07)
DX: C25.1 Malignant neoplasm of body of pancreas (principal); Z76.89 Persons encountering health services in other specified circumstances
CPT/HCPCS: 96372; J1447

== ENCOUNTER 2024-02-08 12:15 | Day surgery (SDC) | payer OTHER ==
[2024-02-08] MEDS: TBO-FILGRASTIM 300 MCG/0.5 ML DISP.SYRINGE SQ ONE (12:24)
[2024-02-08 15:38] VITALS: BP 137/84; PULSE 77; RESP 20
[2024-02-08 15:45] VITALS: TEMP 98.4
== END 2024-02-08 12:40 | disposition home or self-care (01) ==
LOC: JONCCHEMO 12:15 → J7W 12:16 → JONCCHEMO 12:40
PROVIDERS: ATTEND Internal Medicine Hematology & Oncology
PROC: 3E013GC Introduction of Other Therapeutic Substance into Subcutaneous Tissue, Percutaneous Approach (ICD-10-PCS; principal; 2024-02-08)
DX: C25.1 Malignant neoplasm of body of pancreas (principal); Z76.89 Persons encountering health services in other specified circumstances
CPT/HCPCS: 96372; J1447

== ENCOUNTER 2024-02-15 09:40 | Day surgery (SDC) | payer OTHER ==
[~2024-02-15 09:40] MED LIST changes: +DEXTROSE 5% IVPB ONE; +FLUOROURACIL 4,275 MG in SODIUM CHLORIDE 6.5 ML CP ONE; +IRINOTECAN HCL 270 MG in DEXTROSE 5%-WATER - 500 ML IVPB ONE; +LEUCOVORIN IVPB ONE; +WATER IVPB ONE
[2024-02-15] MEDS: TBO-FILGRASTIM 300 MCG/0.5 ML DISP.SYRINGE SQ ONE (10:01)
[2024-02-15] MEDS ORDERED: WATER IVPB ONE (12:00)
[2024-02-15] MEDS ORDERED: DEXTROSE 5% IVPB ONE (12:00)
[2024-02-15] MEDS ORDERED: LEUCOVORIN IVPB ONE (12:00)
[2024-02-15] MEDS ORDERED: IRINOTECAN HCL 270 MG in DEXTROSE 5%-WATER - 500 ML IVPB ONE (12:30)
[2024-02-15] MEDS ORDERED: FLUOROURACIL 4,275 MG in SODIUM CHLORIDE 6.5 ML CP ONE (14:00)
[2024-02-15 17:41] VITALS: BP 142/69; PULSE 83; RESP 20; TEMP 98
== END 2024-02-15 10:35 | disposition home or self-care (01) ==
LOC: JONCCHEMO 09:40
PROVIDERS: ATTEND Internal Medicine Hematology & Oncology
PROC: 3E013GC Introduction of Other Therapeutic Substance into Subcutaneous Tissue, Percutaneous Approach (ICD-10-PCS; principal; 2024-02-15)
DX: C25.1 Malignant neoplasm of body of pancreas (principal)
CPT/HCPCS: 96372; J1447

== ENCOUNTER 2024-02-16 09:20 | Day surgery (SDC) | payer OTHER ==
[2024-02-16] MEDS: TBO-FILGRASTIM 300 MCG/0.5 ML DISP.SYRINGE SQ ONE (09:23)
[2024-02-16 14:03] VITALS: BP 134/78; PULSE 72; RESP 18; TEMP 98.1
== END 2024-02-16 10:00 | disposition home or self-care (01) ==
LOC: JONCCHEMO 09:20 → J7W 09:21 → JONCCHEMO 10:00
PROVIDERS: ATTEND Internal Medicine Hematology & Oncology
PROC: 3E013GC Introduction of Other Therapeutic Substance into Subcutaneous Tissue, Percutaneous Approach (ICD-10-PCS; principal; 2024-02-16)
DX: C25.1 Malignant neoplasm of body of pancreas (principal); Z76.89 Persons encountering health services in other specified circumstances
CPT/HCPCS: 96372; J1447

== ENCOUNTER 2024-02-17 08:55 | Day surgery (SDC) | payer OTHER ==
[2024-02-17] MEDS: TBO-FILGRASTIM 300 MCG/0.5 ML DISP.SYRINGE SQ ONE (09:04)
[2024-02-17 16:36] VITALS: BP 126/77; PULSE 69; RESP 20; TEMP 98.5
== END 2024-02-17 09:15 | disposition home or self-care (01) ==
LOC: J7W 08:55 → JONCCHEMO 08:55
PROVIDERS: ATTEND Internal Medicine Hematology & Oncology
PROC: 3E013GC Introduction of Other Therapeutic Substance into Subcutaneous Tissue, Percutaneous Approach (ICD-10-PCS; principal; 2024-02-17)
DX: C25.1 Malignant neoplasm of body of pancreas (principal); D70.9 Neutropenia, unspecified
CPT/HCPCS: 96372; J1447

== ENCOUNTER 2024-02-22 10:02 | Day surgery (SDC) | payer OTHER ==
[2024-02-22 10:35] LABS: HEMATOCRIT 34.2 % (32.4-45.2); HEMOGLOBIN 11.2 GM/dL (10.7-15.3); MCH 29.3 pg (25.7-33.7); MCHC 32.7 g/dl (32.0-36.0); MEAN CELL VOLUME 89.9 fl (80-96); MEAN PLT VOLUME 8.4 fl (7.5-11.1); PLATELET COUNT 207 10^3/uL (134-434); RBC 3.81 M/mm3 (3.60-5.2); RDW 20.2 % (11.6-15.6); WHITE BLOOD COUNT 7.2 K/mm3 (4.0-10.0)
[2024-02-22 10:56] LABS: POTASSIUM 3.8 mmol/L (3.5-5.1)
[2024-02-22 10:58] LABS: ALBUMIN 3.4 g/dl (3.4-5.0); BLOOD UREA NITROGEN 18.2 mg/dL (7-18); CALCIUM 9.1 mg/dL (8.5-10.1)
[2024-02-22 11:02] LABS: CREATININE 0.8 mg/dL (0.55-1.3)
[2024-02-22 11:03] LABS: BILIRUBIN,TOTAL 0.3 mg/dL (0.2-1)
[2024-02-22 11:34] LABS: ANISOCYTOSIS 1+; MACROCYTOSIS 0
[2024-02-22] MEDS: SODIUM CHLORIDE 250 ML IV ONE (11:49)
[2024-02-22] MEDS: FOSAPREPITANT DIMEGLUMINE 150 MG in SODIUM CHLORIDE 145 ML IVPB ONE (12:10)
[2024-02-22] MEDS: DEXAMETHASONE SODIUM PHOSPHATE 10 MG, DIPHENHYDRAMINE 25 MG in SODIUM CHLORIDE 100 ML IVPB ONE (12:41)
[2024-02-22] MEDS: PALONOSETRON HCL 0.25 MG/5 ML VIAL IVPUSH ONE (12:42)
[2024-02-22] MEDS: WATER IVPB ONE (13:28)
[2024-02-22] MEDS: DEXTROSE 5% IVPB ONE (13:28)
[2024-02-22] MEDS: LEUCOVORIN IVPB ONE (13:28)
[2024-02-22] MEDS: ATROPINE SO4 0.4 MG/1 ML VIAL IVPUSH ONE (15:52)
[2024-02-22] MEDS: IRINOTECAN HCL 260 MG in DEXTROSE 5%-WATER - 500 ML IVPB ONE (15:57)
[2024-02-22 16:03] VITALS: TEMP 98.6
[2024-02-22] MEDS: FLUOROURACIL 4,200 MG in SODIUM CHLORIDE 8 ML CP ONE (17:36)
[2024-02-22 17:50] VITALS: BP 150/88; PULSE 69; RESP 20
== END 2024-02-22 18:08 | disposition home or self-care (01) ==
LOC: J7W 10:02 → JONCCHEMO 10:02
PROVIDERS: ATTEND Internal Medicine Hematology & Oncology
DX: Z51.11 Encounter for antineoplastic chemotherapy (principal); C25.1 Malignant neoplasm of body of pancreas
CPT/HCPCS: 36415; 80053; 83735; 85025; 96367; 96368; 96375; 96413; 96415; 96417; G0498; J1453; J2469; J9206; J9263

== ENCOUNTER 2024-02-24 14:19 | Day surgery (SDC) | payer OTHER ==
[2024-02-24] MEDS: D5-NS + 20 MEQ KCL - 10 MEQ/500 ML INFUS.BAG IV ONE (14:25)
[2024-02-24 15:50] VITALS: BP 142/60; PULSE 63; RESP 20; TEMP 98.8
[2024-02-24] MEDS ORDERED: PORTA CATH FLUSH 10 ML IVPUSH PRN (15:50)
== END 2024-02-24 16:30 | disposition home or self-care (01) ==
LOC: JONCCHEMO 14:19 → J7W 14:20 → JONCCHEMO 16:30
PROVIDERS: ATTEND Internal Medicine Hematology & Oncology
PROC: 3E033GC Introduction of Other Therapeutic Substance into Peripheral Vein, Percutaneous Approach (ICD-10-PCS; principal; 2024-02-24)
DX: C25.1 Malignant neoplasm of body of pancreas (principal)
CPT/HCPCS: 96365; 96366

== ENCOUNTER 2024-03-14 08:19 | Day surgery (SDC) | payer OTHER ==
[2024-03-14] MEDS: TBO-FILGRASTIM 300 MCG/0.5 ML DISP.SYRINGE SQ ONE (09:13)
[2024-03-14] MEDS ORDERED: SODIUM CHLORIDE 250 ML IV ONE (09:30)
[2024-03-14] MEDS ORDERED: ATROPINE SO4 0.4 MG/1 ML VIAL IVPUSH ONE (10:00)
[2024-03-14] MEDS ORDERED: FOSAPREPITANT DIMEGLUMINE 150 MG in SODIUM CHLORIDE 145 ML IVPB ONE (10:00)
[2024-03-14] MEDS ORDERED: PALONOSETRON HCL 0.25 MG/5 ML VIAL IVPUSH ONE (10:00)
[2024-03-14] MEDS ORDERED: DEXAMETHASONE SODIUM PHOSPHATE 10 MG, DIPHENHYDRAMINE 25 MG in SODIUM CHLORIDE 100 ML IVPB ONE (10:00)
[2024-03-14 10:27] VITALS: BP 142/79; PULSE 70; RESP 18; TEMP 98.5
[2024-03-14] MEDS ORDERED: DEXTROSE 5% IVPB ONE (12:30)
[2024-03-14] MEDS ORDERED: WATER IVPB ONE (12:30)
[2024-03-14] MEDS ORDERED: LEUCOVORIN IVPB ONE (12:30)
[2024-03-14] MEDS ORDERED: IRINOTECAN HCL 260 MG in DEXTROSE 5%-WATER - 500 ML IVPB ONE (13:00)
[2024-03-14] MEDS ORDERED: FLUOROURACIL 4,200 MG in SODIUM CHLORIDE 8 ML CP ONE (14:30)
== END 2024-03-14 09:30 | disposition home or self-care (01) ==
LOC: JONCCHEMO 08:19 → J7W 08:22 → JONCCHEMO 09:30
PROVIDERS: ATTEND Internal Medicine Hematology & Oncology
PROC: 3E013GC Introduction of Other Therapeutic Substance into Subcutaneous Tissue, Percutaneous Approach (ICD-10-PCS; principal; 2024-03-14)
DX: Z76.89 Persons encountering health services in other specified circumstances (principal); C25.1 Malignant neoplasm of body of pancreas
CPT/HCPCS: 96372; J1447

== ENCOUNTER 2024-03-15 10:09 | Day surgery (SDC) | payer OTHER ==
[2024-03-15] MEDS: TBO-FILGRASTIM 300 MCG/0.5 ML DISP.SYRINGE SQ ONE (10:12)
[2024-03-15 15:17] VITALS: BP 154/78; PULSE 78; RESP 18; TEMP 98.8
== END 2024-03-15 10:30 | disposition home or self-care (01) ==
LOC: JONCCHEMO 10:09 → J7W 10:10 → JONCCHEMO 10:30
PROVIDERS: ATTEND Internal Medicine Hematology & Oncology
PROC: 3E013GC Introduction of Other Therapeutic Substance into Subcutaneous Tissue, Percutaneous Approach (ICD-10-PCS; principal; 2024-03-15)
DX: Z76.89 Persons encountering health services in other specified circumstances (principal); C25.1 Malignant neoplasm of body of pancreas
CPT/HCPCS: 96372; J1447

== ENCOUNTER 2024-03-21 08:40 | Day surgery (SDC) | payer OTHER ==
[2024-03-21] MEDS: SODIUM CHLORIDE 250 ML IV ONE (08:56)
[2024-03-21] MEDS: FOSAPREPITANT DIMEGLUMINE 150 MG in SODIUM CHLORIDE 145 ML IVPB ONE (09:50)
[2024-03-21] MEDS: DEXAMETHASONE SODIUM PHOSPHATE 10 MG, DIPHENHYDRAMINE 25 MG in SODIUM CHLORIDE 100 ML IVPB ONE (10:25)
[2024-03-21] MEDS: PALONOSETRON HCL 0.25 MG/5 ML VIAL IVPUSH ONE (11:02)
[2024-03-21] MEDS: ATROPINE SO4 0.4 MG/1 ML VIAL IVPUSH ONE (13:36)
[2024-03-21] MEDS: LEUCOVORIN IVPB ONE (13:40)
[2024-03-21] MEDS: DEXTROSE 5% IVPB ONE (13:40)
[2024-03-21] MEDS: WATER IVPB ONE (13:40)
[2024-03-21] MEDS: IRINOTECAN HCL 270 MG in DEXTROSE 5%-WATER - 500 ML IVPB ONE (14:15)
[2024-03-21 14:36] VITALS: TEMP 98.9
[2024-03-21] MEDS: PORTA CATH FLUSH 10 ML IVPUSH PRN (16:05)
[2024-03-21] MEDS: FLUOROURACIL CP ONE (16:07)
[2024-03-21] MEDS: SODIUM CHLORIDE CP ONE (16:07)
[2024-03-21 16:16] VITALS: BP 155/79; PULSE 67; RESP 20
== END 2024-03-21 16:30 | disposition home or self-care (01) ==
LOC: JONCCHEMO 08:40 → J7W 08:46 → JONCCHEMO 16:30
PROVIDERS: ATTEND Internal Medicine Hematology & Oncology
PROC: 3E04305 Introduction of Other Antineoplastic into Central Vein, Percutaneous Approach (ICD-10-PCS; principal; 2024-03-21)
PROC: 3E04305 Introduction of Other Antineoplastic into Central Vein, Percutaneous Approach (ICD-10-PCS; 2024-03-21)
PROC: 3E0437Z Introduction of Electrolytic and Water Balance Substance into Central Vein, Percutaneous Approach (ICD-10-PCS; 2024-03-21)
DX: Z51.11 Encounter for antineoplastic chemotherapy (principal); C25.1 Malignant neoplasm of body of pancreas
CPT/HCPCS: 96367; 96368; 96375; 96413; 96415; 96417; G0498; J1453; J2469; J9206; J9263

== ENCOUNTER 2024-03-23 14:00 | Day surgery (SDC) | payer OTHER ==
[2024-03-23] MEDS: D5-NS + 20 MEQ KCL - 10 MEQ/500 ML INFUS.BAG IV ONE (14:11)
[2024-03-23] MEDS: PORTA CATH FLUSH 10 ML IVPUSH PRN (16:15)
[2024-03-23 17:51] VITALS: TEMP 98.6
[2024-03-23 17:53] VITALS: BP 138/78; PULSE 66; RESP 20
== END 2024-03-23 16:20 | disposition home or self-care (01) ==
LOC: JONCCHEMO 14:00 → J7W 14:13 → JONCCHEMO 16:20
PROVIDERS: ATTEND Internal Medicine Hematology & Oncology
PROC: 3E0337Z Introduction of Electrolytic and Water Balance Substance into Peripheral Vein, Percutaneous Approach (ICD-10-PCS; principal; 2024-03-23)
DX: Z76.89 Persons encountering health services in other specified circumstances (principal); C25.1 Malignant neoplasm of body of pancreas
CPT/HCPCS: 96360; 96361

== ENCOUNTER 2024-03-24 16:14 | Day surgery (SDC) | payer OTHER ==
[2024-03-24] MEDS: TBO-FILGRASTIM 300 MCG/0.5 ML DISP.SYRINGE SQ ONE (16:16)
[2024-03-24 16:53] VITALS: BP 168/82; PULSE 71; RESP 18; TEMP 98.5
== END 2024-03-24 16:20 | disposition home or self-care (01) ==
LOC: J7W 16:14 → JONCCHEMO 16:14
PROVIDERS: ATTEND Internal Medicine Hematology & Oncology
PROC: 3E013GC Introduction of Other Therapeutic Substance into Subcutaneous Tissue, Percutaneous Approach (ICD-10-PCS; principal; 2024-03-24)
DX: Z76.89 Persons encountering health services in other specified circumstances (principal); C25.1 Malignant neoplasm of body of pancreas
CPT/HCPCS: 96372; J1447

== ENCOUNTER 2024-03-27 08:56 | Day surgery (SDC) | payer OTHER ==
[2024-03-27] MEDS: TBO-FILGRASTIM 300 MCG/0.5 ML DISP.SYRINGE SQ ONE (08:59)
[2024-03-27 17:34] VITALS: BP 164/78; PULSE 72; RESP 18; TEMP 98.6
== END 2024-03-27 09:30 | disposition home or self-care (01) ==
LOC: JONCCHEMO 08:56 → J7W 08:57 → JONCCHEMO 09:30
PROVIDERS: ATTEND Internal Medicine Hematology & Oncology
PROC: 3E013GC Introduction of Other Therapeutic Substance into Subcutaneous Tissue, Percutaneous Approach (ICD-10-PCS; principal; 2024-03-27)
DX: Z76.89 Persons encountering health services in other specified circumstances (principal); C25.1 Malignant neoplasm of body of pancreas
CPT/HCPCS: 96372; J1447

== ENCOUNTER 2024-04-11 08:47 | Day surgery (SDC) | payer OTHER ==
[2024-04-11] MEDS: TBO-FILGRASTIM 300 MCG/0.5 ML DISP.SYRINGE SQ ONE (09:14)
[2024-04-11] MEDS ORDERED: DEXAMETHASONE SODIUM PHOSPHATE 10 MG, DIPHENHYDRAMINE 25 MG in SODIUM CHLORIDE 100 ML IVPB ONE (10:00)
[2024-04-11] MEDS ORDERED: PALONOSETRON HCL 0.25 MG/5 ML VIAL IVPUSH ONE (10:00)
[2024-04-11] MEDS ORDERED: SODIUM CHLORIDE 250 ML IV ONE (10:00)
[2024-04-11] MEDS ORDERED: ATROPINE SO4 0.4 MG/1 ML VIAL IVPUSH ONE (10:00)
[2024-04-11] MEDS ORDERED: FOSAPREPITANT DIMEGLUMINE 150 MG in SODIUM CHLORIDE 145 ML IVPB ONE (10:00)
[2024-04-11] MEDS ORDERED: IRINOTECAN HCL 270 MG in DEXTROSE 5%-WATER - 500 ML IVPB ONE (12:30)
[2024-04-11] MEDS ORDERED: WATER IVPB ONE (13:00)
[2024-04-11] MEDS ORDERED: LEUCOVORIN IVPB ONE (13:00)
[2024-04-11] MEDS ORDERED: DEXTROSE 5% IVPB ONE (13:00)
[2024-04-11 14:10] VITALS: BP 144/79; PULSE 76; RESP 18; TEMP 98.5
[2024-04-11] MEDS ORDERED: SODIUM CHLORIDE CP ONE (14:30)
[2024-04-11] MEDS ORDERED: FLUOROURACIL CP ONE (14:30)
== END 2024-04-11 09:30 | disposition home or self-care (01) ==
LOC: JONCCHEMO 08:47 → J7W 08:48 → JONCCHEMO 09:30
PROVIDERS: ATTEND Internal Medicine Hematology & Oncology
PROC: 3E013GC Introduction of Other Therapeutic Substance into Subcutaneous Tissue, Percutaneous Approach (ICD-10-PCS; principal; 2024-04-11)
DX: C25.1 Malignant neoplasm of body of pancreas (principal); D70.9 Neutropenia, unspecified
CPT/HCPCS: 96372; J1447

== ENCOUNTER 2024-04-12 10:04 | Day surgery (SDC) | payer OTHER ==
[2024-04-12] MEDS: TBO-FILGRASTIM 300 MCG/0.5 ML DISP.SYRINGE SQ ONE (10:16)
[2024-04-12 15:51] VITALS: BP 170/88; PULSE 89; RESP 20; TEMP 98.2
== END 2024-04-12 10:30 | disposition home or self-care (01) ==
LOC: JONCCHEMO 10:04 → J7W 10:05 → JONCCHEMO 10:30
PROVIDERS: ATTEND Internal Medicine Hematology & Oncology
PROC: 3E013GC Introduction of Other Therapeutic Substance into Subcutaneous Tissue, Percutaneous Approach (ICD-10-PCS; principal; 2024-04-12)
DX: Z76.89 Persons encountering health services in other specified circumstances (principal); C25.0 Malignant neoplasm of head of pancreas
CPT/HCPCS: 96372; J1447

== ENCOUNTER 2024-04-13 10:40 | Day surgery (SDC) | payer OTHER ==
[2024-04-13] MEDS: TBO-FILGRASTIM 300 MCG/0.5 ML DISP.SYRINGE SQ ONE (10:45)
[2024-04-13 15:16] VITALS: BP 147/83; PULSE 79; RESP 18; TEMP 98.3
== END 2024-04-13 11:10 | disposition home or self-care (01) ==
LOC: JONCCHEMO 10:40 → J7W 15:07 → JONCCHEMO 15:07
PROVIDERS: ATTEND Internal Medicine Hematology & Oncology
PROC: 3E013GC Introduction of Other Therapeutic Substance into Subcutaneous Tissue, Percutaneous Approach (ICD-10-PCS; principal; 2024-04-13)
DX: C25.1 Malignant neoplasm of body of pancreas (principal); Z76.89 Persons encountering health services in other specified circumstances
CPT/HCPCS: 96402; J1447

== ENCOUNTER 2024-04-18 08:57 | Day surgery (SDC) | payer OTHER ==
[2024-04-18 09:30] LABS: HEMATOCRIT 35.3 % (32.4-45.2); HEMOGLOBIN 11.5 GM/dL (10.7-15.3); MCH 30.4 pg (25.7-33.7); MCHC 32.7 g/dl (32.0-36.0); MEAN PLT VOLUME 8.5 fl (7.5-11.1); PLATELET COUNT 173 10^3/uL (134-434); WHITE BLOOD COUNT 5.7 K/mm3 (4.0-10.0)
[2024-04-18 10:00] LABS: ANISOCYTOSIS 0; HELMET CELLS 0; HOWELL-JOLLY BODIES 0; MACROCYTOSIS 0; OVALOCYTE 0; ROULEAU 0; SICKELED CELLS 0; TARGET CELLS 0; TEAR DROP CELLS 0; TOXIC GRANULATION 0
[2024-04-18 10:14] LABS: POTASSIUM 3.5 mmol/L (3.5-5.1)
[2024-04-18 10:16] LABS: ALBUMIN 3.3 g/dl (3.4-5.0); CALCIUM 9.1 mg/dL (8.5-10.1)
[2024-04-18 10:17] LABS: BLOOD UREA NITROGEN 19.3 mg/dL (7-18); MAGNESIUM 1.9 mg/dL (1.8-2.4)
[2024-04-18 10:20] LABS: CREATININE 0.9 mg/dL (0.55-1.3)
[2024-04-18 10:21] LABS: BILIRUBIN,TOTAL 0.3 mg/dL (0.2-1); TOT PROT 6.9 g/dl (6.4-8.2)
[2024-04-18] MEDS: SODIUM CHLORIDE 250 ML IV ONE (10:25)
[2024-04-18] MEDS ORDERED: WATER IV ONE (10:30)
[2024-04-18] MEDS ORDERED: DEXTROSE 5% IV ONE (10:30)
[2024-04-18] MEDS ORDERED: OXALIPLATIN IV ONE (10:30)
[2024-04-18] MEDS: DEXAMETHASONE SODIUM PHOSPHATE 10 MG, DIPHENHYDRAMINE 25 MG in DEXTROSE 5%-WATER - 100 ML IVPB ONE (11:45)
[2024-04-18] MEDS: PALONOSETRON HCL 0.25 MG/5 ML VIAL IVPUSH ONE (11:45)
[2024-04-18] MEDS: FOSAPREPITANT DIMEGLUMINE 150 MG in SODIUM CHLORIDE 145 ML IVPB ONE (12:30)
[2024-04-18] MEDS ORDERED: IRINOTECAN HCL 270 MG in DEXTROSE 5%-WATER - 500 ML IVPB ONE (13:00)
[2024-04-18] MEDS ORDERED: SODIUM CHLORIDE CP ONE (15:00)
[2024-04-18] MEDS ORDERED: FLUOROURACIL CP ONE (15:00)
[2024-04-18] MEDS: ATROPINE SO4 0.4 MG/1 ML VIAL IVPUSH ONE (15:29)
[2024-04-18] MEDS: LEUCOVORIN IVPB ONE (15:31)
[2024-04-18] MEDS: WATER IVPB ONE ×2 (15:31→15:34)
[2024-04-18] MEDS: DEXTROSE 5% IVPB ONE ×2 (15:31→15:34)
[2024-04-18] MEDS: IRINOTECAN HCL IVPB ONE (15:34)
[2024-04-18 16:30] VITALS: RESP 20; TEMP 98.6
[2024-04-18] MEDS: FLUOROURACIL 3,500 MG in SODIUM CHLORIDE 22 ML CP ONE (17:45)
[2024-04-18] MEDS: PORTA CATH FLUSH 10 ML IVPUSH PRN (17:51)
[2024-04-18 18:14] VITALS: BP 150/87; PULSE 77
== END 2024-04-18 18:00 | disposition home or self-care (01) ==
LOC: JONCCHEMO 08:57 → J7W 09:06 → JONCCHEMO 18:00
PROVIDERS: ATTEND Internal Medicine Hematology & Oncology
PROC: 3E04305 Introduction of Other Antineoplastic into Central Vein, Percutaneous Approach (ICD-10-PCS; principal; 2024-04-18)
PROC: 3E043GC Introduction of Other Therapeutic Substance into Central Vein, Percutaneous Approach (ICD-10-PCS; 2024-04-18)
DX: Z51.11 Encounter for antineoplastic chemotherapy (principal); C25.1 Malignant neoplasm of body of pancreas
CPT/HCPCS: 36415; 80053; 83735; 85025; 96367; 96368; 96375; 96413; 96415; 96417; G0498; J1453; J9206; J9263

== ENCOUNTER 2024-04-20 14:10 | Day surgery (SDC) | payer OTHER ==
[~2024-04-20 14:10] MED LIST changes: -ATROPINE SO4 0.4 MG/1 ML VIAL IVPUSH ONE; +D5-1/2NS+20 MEQ KCL - 10 MEQ/500 ML INFUS.BAG IV ONE; -DEXAMETHASONE SODIUM PHOSPHATE 10 MG, DIPHENHYDRAMINE 25 MG in SODIUM CHLORIDE 100 ML IVPB ONE; -DEXTROSE 5% IVPB ONE; -FLUOROURACIL 4,275 MG in SODIUM CHLORIDE 6.5 ML CP ONE; -FOSAPREPITANT DIMEGLUMINE 150 MG in SODIUM CHLORIDE 145 ML IVPB ONE; -IRINOTECAN HCL 270 MG in DEXTROSE 5%-WATER - 500 ML IVPB ONE; -LEUCOVORIN IVPB ONE; -PALONOSETRON HCL 0.25 MG/5 ML VIAL IVPUSH ONE; -SODIUM CHLORIDE 250 ML IV ONE; -WATER IVPB ONE
[2024-04-20] MEDS: D5-NS + 20 MEQ KCL - 10 MEQ/500 ML INFUS.BAG IV ONE (14:12)
[2024-04-20 17:59] VITALS: BP 117/71; PULSE 74; RESP 18; TEMP 98.2
[2024-04-20] MEDS ORDERED: PORTA CATH FLUSH 10 ML IVPUSH PRN (17:59)
== END 2024-04-20 16:30 | disposition home or self-care (01) ==
LOC: JONCCHEMO 14:10 → J7W 14:10 → JONCCHEMO 16:30
PROVIDERS: ATTEND Internal Medicine Hematology & Oncology
PROC: 3E0437Z Introduction of Electrolytic and Water Balance Substance into Central Vein, Percutaneous Approach (ICD-10-PCS; principal; 2024-04-20)
DX: C25.1 Malignant neoplasm of body of pancreas (principal); Z76.89 Persons encountering health services in other specified circumstances

== ENCOUNTER 2024-04-26 09:29 | Day surgery (SDC) | payer OTHER ==
[2024-04-26] MEDS: TBO-FILGRASTIM 300 MCG/0.5 ML DISP.SYRINGE SQ ONE (10:04)
[2024-04-26 11:17] VITALS: BP 147/80; PULSE 71; RESP 20; TEMP 98
== END 2024-04-26 10:20 | disposition home or self-care (01) ==
LOC: JONCCHEMO 09:29 → J7W 09:40 → JONCCHEMO 10:20
PROVIDERS: ATTEND Internal Medicine Hematology & Oncology
PROC: 3E013GC Introduction of Other Therapeutic Substance into Subcutaneous Tissue, Percutaneous Approach (ICD-10-PCS; principal; 2024-04-26)
DX: C25.9 Malignant neoplasm of pancreas, unspecified (principal); Z76.89 Persons encountering health services in other specified circumstances
CPT/HCPCS: 96372; J1447

== ENCOUNTER 2024-04-27 11:02 | Day surgery (SDC) | payer OTHER ==
[2024-04-27] MEDS: TBO-FILGRASTIM 300 MCG/0.5 ML DISP.SYRINGE SQ ONE (11:05)
[2024-04-27 15:56] VITALS: BP 160/84; PULSE 74; RESP 18; TEMP 97.4
== END 2024-04-27 11:30 | disposition home or self-care (01) ==
LOC: J7W 11:02 → JONCCHEMO 11:02
PROVIDERS: ATTEND Internal Medicine Hematology & Oncology
PROC: 3E033GC Introduction of Other Therapeutic Substance into Peripheral Vein, Percutaneous Approach (ICD-10-PCS; principal; 2024-04-27)
DX: C25.9 Malignant neoplasm of pancreas, unspecified (principal); Z76.89 Persons encountering health services in other specified circumstances
CPT/HCPCS: 96372; J1447

== ENCOUNTER 2024-05-09 09:06 | Day surgery (SDC) | payer OTHER ==
[2024-05-09] MEDS: SODIUM CHLORIDE 250 ML IV ONE (09:21)
[2024-05-09 09:29] VITALS: RESP 18; TEMP 97.9
[2024-05-09] MEDS: FOSAPREPITANT DIMEGLUMINE 150 MG in SODIUM CHLORIDE 145 ML IVPB ONE (10:02)
[2024-05-09] MEDS: DEXAMETHASONE SODIUM PHOSPHATE 10 MG, DIPHENHYDRAMINE 25 MG in DEXTROSE 5%-WATER - 100 ML IVPB ONE (10:46)
[2024-05-09] MEDS: PALONOSETRON HCL 0.25 MG/5 ML VIAL IVPUSH ONE (10:49)
[2024-05-09] MEDS: ATROPINE SO4 0.4 MG/1 ML VIAL IVPUSH ONE (13:53)
[2024-05-09] MEDS: DEXTROSE 5% IVPB ONE ×2 (13:55→13:56)
[2024-05-09] MEDS: WATER IVPB ONE ×2 (13:55→13:56)
[2024-05-09] MEDS: LEUCOVORIN IVPB ONE (13:55)
[2024-05-09] MEDS: IRINOTECAN HCL IVPB ONE (13:56)
[2024-05-09] MEDS ORDERED: PORTA CATH FLUSH 10 ML IVPUSH PRN (14:56)
[2024-05-09] MEDS: FLUOROURACIL 3,500 MG in SODIUM CHLORIDE 22 ML CP ONE (16:19)
[2024-05-09 16:41] VITALS: BP 114/75; PULSE 70
== END 2024-05-09 16:50 | disposition home or self-care (01) ==
LOC: JONCCHEMO 09:06 → J7W 09:07 → JONCCHEMO 16:50
PROVIDERS: ATTEND Internal Medicine Hematology & Oncology
DX: Z51.11 Encounter for antineoplastic chemotherapy (principal); C25.1 Malignant neoplasm of body of pancreas
CPT/HCPCS: 96367; 96368; 96375; 96413; 96415; 96417; G0498; J1453; J9206; J9263

== ENCOUNTER 2024-05-12 16:18 | Day surgery (SDC) | payer OTHER ==
[2024-05-12] MEDS: TBO-FILGRASTIM 300 MCG/0.5 ML DISP.SYRINGE SQ ONE (16:15)
[2024-05-12 19:03] VITALS: BP 132/88; PULSE 76; RESP 20; TEMP 98.4
== END 2024-05-12 16:30 | disposition home or self-care (01) ==
LOC: JONCCHEMO 16:18 → J7W 16:18 → JONCCHEMO 16:30
PROVIDERS: ATTEND Internal Medicine Hematology & Oncology
PROC: 3E013GC Introduction of Other Therapeutic Substance into Subcutaneous Tissue, Percutaneous Approach (ICD-10-PCS; principal; 2024-05-12)
DX: D70.9 Neutropenia, unspecified (principal); C25.9 Malignant neoplasm of pancreas, unspecified
CPT/HCPCS: 96372; J1447

== ENCOUNTER 2024-05-30 09:51 | Day surgery (SDC) | payer OTHER ==
[2024-05-30] MEDS: SODIUM CHLORIDE 250 ML IV ONE (09:50)
[2024-05-30] MEDS: FOSAPREPITANT DIMEGLUMINE 150 MG in SODIUM CHLORIDE 145 ML IVPB ONE (09:55)
[2024-05-30] MEDS: DEXAMETHASONE SODIUM PHOSPHATE 10 MG, DIPHENHYDRAMINE 25 MG in SODIUM CHLORIDE 100 ML IVPB ONE (10:35)
[2024-05-30] MEDS: PALONOSETRON HCL 0.25 MG/5 ML VIAL IVPUSH ONE (11:03)
[2024-05-30] MEDS: ATROPINE SO4 0.4 MG/1 ML VIAL IVPUSH ONE (13:54)
[2024-05-30] MEDS: LEUCOVORIN IVPB ONE (13:55)
[2024-05-30] MEDS: WATER IVPB ONE ×2 (13:55→13:56)
[2024-05-30] MEDS: DEXTROSE 5% IVPB ONE ×2 (13:55→13:56)
[2024-05-30] MEDS: IRINOTECAN HCL IVPB ONE (13:56)
[2024-05-30] MEDS: FLUOROURACIL 3,500 MG in SODIUM CHLORIDE 22 ML CP ONE (16:12)
[2024-05-30 17:32] VITALS: BP 142/70; PULSE 57; RESP 20; TEMP 98.3
[2024-05-30] MEDS ORDERED: PORTA CATH FLUSH 10 ML IVPUSH PRN (17:32)
== END 2024-05-30 17:36 | disposition home or self-care (01) ==
LOC: JONCCHEMO 09:51 → J7W 09:52 → JONCCHEMO 17:36
PROVIDERS: ATTEND Internal Medicine Hematology & Oncology
PROC: 3E04305 Introduction of Other Antineoplastic into Central Vein, Percutaneous Approach (ICD-10-PCS; principal; 2024-05-30)
PROC: 3E043GC Introduction of Other Therapeutic Substance into Central Vein, Percutaneous Approach (ICD-10-PCS; 2024-05-30)
PROC: 3E0437Z Introduction of Electrolytic and Water Balance Substance into Central Vein, Percutaneous Approach (ICD-10-PCS; 2024-05-30)
DX: Z51.11 Encounter for antineoplastic chemotherapy (principal); C25.1 Malignant neoplasm of body of pancreas
CPT/HCPCS: 96367; 96375; 96413; 96415; 96417; G0498; J1453; J9206; J9263

== ENCOUNTER 2024-06-01 12:37 | Day surgery (SDC) | payer OTHER ==
[2024-06-01] MEDS: D5-NS + 20 MEQ KCL - 10 MEQ/500 ML INFUS.BAG IV ONE (11:37)
[2024-06-01] MEDS: PORTA CATH FLUSH 10 ML IVPUSH PRN (13:37)
[2024-06-01 16:59] VITALS: RESP 18; TEMP 98.4
[2024-06-01 17:04] VITALS: BP 129/74; PULSE 61
== END 2024-06-01 13:45 | disposition home or self-care (01) ==
LOC: J7W 12:37 → JONCCHEMO 12:37
PROVIDERS: ATTEND Internal Medicine Hematology & Oncology
PROC: 3E0437Z Introduction of Electrolytic and Water Balance Substance into Central Vein, Percutaneous Approach (ICD-10-PCS; principal; 2024-06-01)
DX: Z76.89 Persons encountering health services in other specified circumstances (principal); C25.1 Malignant neoplasm of body of pancreas
CPT/HCPCS: 96360; 96361

== ENCOUNTER 2024-06-27 08:40 | Day surgery (SDC) | payer OTHER ==
[2024-06-27] MEDS: MAGNESIUM SULFATE IN WATER 2 GM/50 ML IVPB IVPB ONE (08:55)
[2024-06-27] MEDS: SODIUM CHLORIDE 250 ML IV ONE (08:55)
[2024-06-27] MEDS: DEXAMETHASONE SODIUM PHOSPHATE 10 MG, DIPHENHYDRAMINE 25 MG in DEXTROSE 5%-WATER - 100 ML IVPB ONE (09:23)
[2024-06-27] MEDS: FOSAPREPITANT DIMEGLUMINE 150 MG in SODIUM CHLORIDE 145 ML IVPB ONE (09:56)
[2024-06-27] MEDS: PALONOSETRON HCL 0.25 MG/5 ML VIAL IVPUSH ONE (09:58)
[2024-06-27] MEDS: ATROPINE SO4 0.4 MG/1 ML VIAL IVPUSH ONE (13:09)
[2024-06-27] MEDS: IRINOTECAN HCL IVPB ONE (13:10)
[2024-06-27] MEDS: DEXTROSE 5% IVPB ONE ×2 (13:10)
[2024-06-27] MEDS: WATER IVPB ONE ×2 (13:10)
[2024-06-27] MEDS: LEUCOVORIN IVPB ONE (13:10)
[2024-06-27] MEDS: FLUOROURACIL 3,500 MG in SODIUM CHLORIDE 22 ML CP ONE (15:25)
[2024-06-27 15:49] VITALS: TEMP 98.2
[2024-06-27 16:02] VITALS: BP 134/77; PULSE 78; RESP 18
[2024-06-27] MEDS ORDERED: PORTA CATH FLUSH 10 ML IVPUSH PRN (16:02)
== END 2024-06-27 15:35 | disposition home or self-care (01) ==
LOC: JONCCHEMO 08:40 → J7W 08:40 → JONCCHEMO 15:35
PROVIDERS: ATTEND Internal Medicine Hematology & Oncology
DX: Z51.11 Encounter for antineoplastic chemotherapy (principal); C25.1 Malignant neoplasm of body of pancreas
CPT/HCPCS: 96367; 96368; 96375; 96413; 96415; 96417; G0498; J1453; J9206; J9263

== ENCOUNTER 2024-06-29 11:29 | Day surgery (SDC) | payer OTHER ==
[~2024-06-29 11:29] MED LIST changes: -D5-1/2NS+20 MEQ KCL - 10 MEQ/500 ML INFUS.BAG IV ONE; +DEXTROSE 5% IV ONE; +NORMAL SALINE IV ONE; +POTASSIUM CHLORIDE IV ONE
[2024-06-29] MEDS: D5-NS + 20 MEQ KCL - 10 MEQ/500 ML INFUS.BAG IV ONE (11:38)
[2024-06-29] MEDS: PORTA CATH FLUSH 10 ML IVPUSH PRN (13:45)
[2024-06-29 18:42] VITALS: TEMP 98.3
[2024-06-29 18:44] VITALS: BP 129/78; PULSE 68; RESP 18
== END 2024-06-29 13:50 | disposition home or self-care (01) ==
LOC: JONCCHEMO 11:29 → J7W 11:30 → JONCCHEMO 13:50
PROVIDERS: ATTEND Internal Medicine Hematology & Oncology
PROC: 3E0437Z Introduction of Electrolytic and Water Balance Substance into Central Vein, Percutaneous Approach (ICD-10-PCS; principal; 2024-06-29)
DX: C25.1 Malignant neoplasm of body of pancreas (principal)
CPT/HCPCS: 96360

== ENCOUNTER 2024-07-19 09:39 | Day surgery (SDC) | payer OTHER ==
[2024-07-19] MEDS: TBO-FILGRASTIM 300 MCG/0.5 ML DISP.SYRINGE SQ ONE (10:04)
[2024-07-19 13:21] VITALS: BP 163/74; PULSE 71; RESP 18; TEMP 98.7
== END 2024-07-19 10:15 | disposition home or self-care (01) ==
LOC: JONCCHEMO 09:39 → J7W 09:43 → JONCCHEMO 10:15
PROVIDERS: ATTEND Internal Medicine Hematology & Oncology
PROC: 3E013GC Introduction of Other Therapeutic Substance into Subcutaneous Tissue, Percutaneous Approach (ICD-10-PCS; principal; 2024-07-19)
DX: Z76.89 Persons encountering health services in other specified circumstances (principal); C25.1 Malignant neoplasm of body of pancreas
CPT/HCPCS: 96372; J1447

== ENCOUNTER 2024-07-20 10:06 | Day surgery (SDC) | payer OTHER ==
[2024-07-20] MEDS: TBO-FILGRASTIM 300 MCG/0.5 ML DISP.SYRINGE SQ ONE ×2 (10:04→17:20)
[2024-07-20 17:23] VITALS: BP 172/87; PULSE 71; RESP 20; TEMP 98.2
== END 2024-07-20 10:15 | disposition home or self-care (01) ==
LOC: JONCCHEMO 10:06 → J7W 10:07 → JONCCHEMO 10:15
PROVIDERS: ATTEND Internal Medicine Hematology & Oncology
PROC: 3E013GC Introduction of Other Therapeutic Substance into Subcutaneous Tissue, Percutaneous Approach (ICD-10-PCS; principal; 2024-07-20)
DX: Z76.89 Persons encountering health services in other specified circumstances (principal); C25.1 Malignant neoplasm of body of pancreas
CPT/HCPCS: 96372; J1447

== ENCOUNTER 2024-07-25 09:47 | Day surgery (SDC) | payer OTHER ==
[2024-07-25] MEDS: MAGNESIUM SULFATE IN WATER 2 GM/50 ML IVPB IVPB ONE (10:00)
[2024-07-25] MEDS: SODIUM CHLORIDE 250 ML IV ONE (10:00)
[2024-07-25] MEDS: FOSAPREPITANT DIMEGLUMINE 150 MG in SODIUM CHLORIDE 145 ML IVPB ONE (11:02)
[2024-07-25] MEDS: DEXAMETHASONE SODIUM PHOSPHATE 10 MG, DIPHENHYDRAMINE 25 MG in SODIUM CHLORIDE 100 ML IVPB ONE (11:42)
[2024-07-25] MEDS ORDERED: WATER IVPB ONE (12:00)
[2024-07-25] MEDS ORDERED: DEXTROSE 5% IVPB ONE (12:00)
[2024-07-25] MEDS ORDERED: LEUCOVORIN IVPB ONE (12:00)
[2024-07-25] MEDS: PALONOSETRON HCL 0.25 MG/5 ML VIAL IVPUSH ONE (12:19)
[2024-07-25] MEDS: WATER IVPB ONE ×2 (14:37→14:38)
[2024-07-25] MEDS: DEXTROSE 5% IVPB ONE ×2 (14:37→14:38)
[2024-07-25] MEDS: ATROPINE SO4 0.4 MG/1 ML VIAL IVPUSH ONE (14:37)
[2024-07-25] MEDS: LEUCOVORIN IVPB ONE (14:37)
[2024-07-25] MEDS: IRINOTECAN HCL IVPB ONE (14:38)
[2024-07-25] MEDS: PORTA CATH FLUSH 10 ML IVPUSH PRN (17:00)
[2024-07-25] MEDS: FLUOROURACIL 3,500 MG in SODIUM CHLORIDE 22 ML CP ONE (17:01)
[2024-07-25 17:54] VITALS: BP 127/73; PULSE 80; RESP 18; TEMP 98.3
== END 2024-07-25 17:20 | disposition home or self-care (01) ==
LOC: JONCCHEMO 09:47 → J7W 09:50 → JONCCHEMO 17:20
PROVIDERS: ATTEND Internal Medicine Hematology & Oncology
DX: Z12.11 Encounter for screening for malignant neoplasm of colon (principal); C25.9 Malignant neoplasm of pancreas, unspecified
CPT/HCPCS: G0498; J1453; J9206; J9263

== ENCOUNTER 2024-08-15 08:46 | Day surgery (SDC) | payer OTHER ==
[2024-08-15 09:36] LABS: BASO % 0.5 % (0-2.0); EOS % 2.2 % (0-4.5); HEMATOCRIT 30.6 % (32.4-45.2); LYMPH % 45.3 % (8-40); MCHC 32.8 g/dl (32.0-36.0); MEAN CELL VOLUME 88.3 fl (80-96); MEAN PLT VOLUME 8.4 fl (7.5-11.1); MONO % 11.4 % (3.8-10.2); NEUT % 40.6 % (42.8-82.8); PLATELET COUNT 164 10^3/uL (134-434); RBC 3.46 M/mm3 (3.60-5.2); RDW 15.4 % (11.6-15.6); WHITE BLOOD COUNT 4.3 K/mm3 (4.0-10.0)
[2024-08-15 09:38] LABS: ALBUMIN 3.3 g/dl (3.4-5.0); BLOOD UREA NITROGEN 16.3 mg/dL (7-18)
[2024-08-15 09:40] LABS: CALCIUM 9.1 mg/dL (8.5-10.1); MAGNESIUM 1.8 mg/dL (1.8-2.4)
[2024-08-15 09:44] LABS: CREATININE 0.9 mg/dL (0.55-1.3)
[2024-08-15 09:45] LABS: BILIRUBIN,TOTAL 0.4 mg/dL (0.2-1); TOT PROT 6.5 g/dl (6.4-8.2)
[2024-08-15] MEDS: SODIUM CHLORIDE 250 ML IV ONE (10:25)
[2024-08-15] MEDS: FOSAPREPITANT DIMEGLUMINE 150 MG in SODIUM CHLORIDE 145 ML IVPB ONE (10:56)
[2024-08-15] MEDS: DEXAMETHASONE SODIUM PHOSPHATE 10 MG, DIPHENHYDRAMINE 25 MG in SODIUM CHLORIDE 100 ML IVPB ONE (11:28)
[2024-08-15] MEDS: PALONOSETRON HCL 0.25 MG/5 ML VIAL IVPUSH ONE (11:30)
[2024-08-15] MEDS: ATROPINE SO4 0.4 MG/1 ML VIAL IVPUSH ONE (12:10)
[2024-08-15] MEDS: LEUCOVORIN INJECTION - 684 MG in DEXTROSE 5%-WATER - 250 ML IVPB ONE (14:37)
[2024-08-15] MEDS: DEXTROSE 5% IVPB ONE (14:44)
[2024-08-15] MEDS: WATER IVPB ONE (14:44)
[2024-08-15] MEDS: IRINOTECAN HCL IVPB ONE (14:44)
[2024-08-15] MEDS: MAGNESIUM SULFATE IN WATER 2 GM/50 ML IVPB IVPB ONE (16:58)
[2024-08-15] MEDS: FLUOROURACIL 3,500 MG in SODIUM CHLORIDE 22 ML CP ONE (17:49)
[2024-08-15 18:39] VITALS: BP 112/65; PULSE 83; RESP 18; TEMP 98.3
[2024-08-15] MEDS ORDERED: PORTA CATH FLUSH 10 ML IVPUSH PRN (18:39)
== END 2024-08-15 18:00 | disposition home or self-care (01) ==
LOC: JONCCHEMO 08:46 → J7W 08:47 → JONCCHEMO 18:00
PROVIDERS: ATTEND Internal Medicine Hematology & Oncology
DX: Z51.11 Encounter for antineoplastic chemotherapy (principal); C25.1 Malignant neoplasm of body of pancreas
CPT/HCPCS: 36415; 80053; 83735; 85025; 96367; 96368; 96375; 96413; 96415; 96417; G0498; J1453; J9206; J9263

== ENCOUNTER 2024-08-17 14:10 | Day surgery (SDC) | payer OTHER ==
[2024-08-17] MEDS: D5-NS + 20 MEQ KCL - 10 MEQ/500 ML INFUS.BAG IV ONE (14:33)
[2024-08-17] MEDS: PORTA CATH FLUSH 10 ML IVPUSH PRN (16:36)
[2024-08-17 18:33] VITALS: TEMP 98.5
[2024-08-18 08:06] VITALS: BP 132/76; PULSE 68; RESP 18
== END 2024-08-17 16:40 | disposition home or self-care (01) ==
LOC: JONCCHEMO 14:10
PROVIDERS: ATTEND Internal Medicine Hematology & Oncology
PROC: 3E0437Z Introduction of Electrolytic and Water Balance Substance into Central Vein, Percutaneous Approach (ICD-10-PCS; principal; 2024-08-17)
DX: C25.9 Malignant neoplasm of pancreas, unspecified (principal); Z76.89 Persons encountering health services in other specified circumstances
CPT/HCPCS: 96360; 96361

== ENCOUNTER 2024-09-12 09:31 | Day surgery (SDC) | payer OTHER ==
[2024-09-12] MEDS: SODIUM CHLORIDE 250 ML IV ONE (10:45)
[2024-09-12 10:47] LABS: ABSOLUTE IMMATURE GRANULOCYTES 0.01 x10^3/uL (0.0-0.031); BASOPHILS # 0.02 x10^3/uL (0.01-0.08); HEMATOCRIT 33.2 % (34.1-44.9); HEMOGLOBIN 10.4 g/dL (11.2-15.7); MCHC 31.3 g/dl (32.2-35.5); MEAN PLT VOLUME 10.6 fl (9.4-12.3); MONOCYTE # 0.54 x10^3/uL (0.24-0.86); PLATELET COUNT # 175 x10^3/uL (182-369); RDW 15.9 % (12.4-16.6)
[2024-09-12 11:03] LABS: CHLORIDE 107 mmol/L (98-107); POTASSIUM 4.1 mmol/L (3.5-5.1); SODIUM 140 mmol/L (136-145)
[2024-09-12 11:05] LABS: ALBUMIN 3.6 g/dl (3.4-5.0); ANION GAP 7 mmol/L (4-13); BLOOD UREA NITROGEN 12.7 mg/dL (7-18); CALCIUM 8.9 mg/dL (8.5-10.1); CO2 26 mmol/L (21-32)
[2024-09-12 11:06] LABS: GLUCOSE,RANDOM 99 mg/dL (74-106)
[2024-09-12 11:08] LABS: BILIRUBIN,DIRECT 0.1 mg/dL (0.0-0.2); SGOT/AST 42 U/L (15-37); SGPT/ALT 53 U/L (13-61)
[2024-09-12 11:09] LABS: CREATININE 0.9 mg/dL (0.55-1.3)
[2024-09-12 11:10] LABS: BILIRUBIN,TOTAL 0.4 mg/dL (0.2-1); TOT PROT 7.1 g/dl (6.4-8.2)
[2024-09-12 11:11] LABS: ALK PHOS 249 U/L (45-117)
[2024-09-12] MEDS: DEXAMETHASONE SODIUM PHOSPHATE 10 MG in SODIUM CHLORIDE 50 ML IVPB ONE (12:00)
[2024-09-12] MEDS: PALONOSETRON HCL 0.25 MG/5 ML VIAL IVPUSH ONE (12:01)
[2024-09-12] MEDS: SODIUM CHLORIDE IVPB ONE ×2 (13:40→14:23)
[2024-09-12] MEDS: PACLITAXEL PROTEIN BOUND IVPB ONE (13:40)
[2024-09-12] MEDS: GEMCITABINE HCL IVPB ONE (14:23)
[2024-09-12] MEDS: PORTA CATH FLUSH 10 ML IVPUSH PRN (15:10)
[2024-09-12 17:08] VITALS: RESP 18; TEMP 98.3
[2024-09-12 17:28] VITALS: BP 140/78; PULSE 68
== END 2024-09-12 15:10 | disposition home or self-care (01) ==
LOC: JONCCHEMO 09:31 → J7W 09:34 → JONCCHEMO 15:10
PROVIDERS: ATTEND Internal Medicine Hematology & Oncology
PROC: 3E04305 Introduction of Other Antineoplastic into Central Vein, Percutaneous Approach (ICD-10-PCS; principal; 2024-09-12)
PROC: 3E043GC Introduction of Other Therapeutic Substance into Central Vein, Percutaneous Approach (ICD-10-PCS; 2024-09-12)
DX: Z51.11 Encounter for antineoplastic chemotherapy (principal); C25.9 Malignant neoplasm of pancreas, unspecified
CPT/HCPCS: 36415; 80048; 80053; 80076; 83735; 85025; 86301; 96375; 96413; 96417; J9264

== ENCOUNTER 2024-09-19 09:25 | Day surgery (SDC) | payer OTHER ==
[2024-09-19 08:37] LABS: HEMATOCRIT 29.6 % (34.1-44.9); HEMOGLOBIN 9.1 g/dL (11.2-15.7); MCHC 30.7 g/dl (32.2-35.5); MEAN PLT VOLUME 10.6 fl (9.4-12.3); PLATELET COUNT 109 x10^3/uL (182-369)
[2024-09-19 09:12] LABS: CHLORIDE 110 mmol/L (98-107); POTASSIUM 4.1 mmol/L (3.5-5.1); SODIUM 141 mmol/L (136-145)
[2024-09-19 09:14] LABS: ALBUMIN 3.2 g/dl (3.4-5.0); ANION GAP 7 mmol/L (4-13); BLOOD UREA NITROGEN 11.2 mg/dL (7-18); CALCIUM 8.8 mg/dL (8.5-10.1); CO2 25 mmol/L (21-32); GLUCOSE,RANDOM 91 mg/dL (74-106); MAGNESIUM 1.9 mg/dL (1.8-2.4)
[2024-09-19 09:17] LABS: CREATININE 0.8 mg/dL (0.55-1.3); MONOCYTE # 0.13 x10^3/uL (0.24-0.86); SGOT/AST 34 U/L (15-37); SGPT/ALT 39 U/L (13-61)
[2024-09-19 09:20] LABS: TOT PROT 6.6 g/dl (6.4-8.2)
[2024-09-19 09:24] LABS: BILIRUBIN,TOTAL 0.6 mg/dL (0.2-1)
[~2024-09-19 09:25] MED LIST changes: -DEXTROSE 5% IV ONE; -NORMAL SALINE IV ONE; -POTASSIUM CHLORIDE IV ONE; +SODIUM CHLORIDE 250 ML IV ONE
[2024-09-19] MEDS ORDERED: PALONOSETRON HCL 0.25 MG/5 ML VIAL IVPUSH ONE (09:30)
[2024-09-19] MEDS ORDERED: DEXAMETHASONE SODIUM PHOSPHATE 10 MG in SODIUM CHLORIDE 50 ML IVPB ONE (09:30)
[2024-09-19 09:41] LABS: ALK PHOS 183 U/L (45-117)
[2024-09-19] MEDS ORDERED: PACLITAXEL PROTEIN BOUND IVPB ONE (10:00)
[2024-09-19] MEDS ORDERED: SODIUM CHLORIDE IVPB ONE ×2 (10:00→10:30)
[2024-09-19] MEDS: TBO-FILGRASTIM 300 MCG/0.5 ML DISP.SYRINGE SQ ONE (10:07)
[2024-09-19] MEDS ORDERED: GEMCITABINE HCL IVPB ONE (10:30)
[2024-09-19 16:17] VITALS: BP 137/74; PULSE 80; RESP 20; TEMP 98
== END 2024-09-19 10:15 | disposition home or self-care (01) ==
LOC: JONCCHEMO 09:25
PROVIDERS: ATTEND Internal Medicine Hematology & Oncology
PROC: 3E013GC Introduction of Other Therapeutic Substance into Subcutaneous Tissue, Percutaneous Approach (ICD-10-PCS; principal; 2024-09-19)
DX: C25.9 Malignant neoplasm of pancreas, unspecified (principal); Z76.89 Persons encountering health services in other specified circumstances
CPT/HCPCS: 36415; 80053; 83735; 85025; 96372; J1447

== ENCOUNTER 2024-09-20 09:25 | Day surgery (SDC) | payer OTHER ==
[2024-09-20] MEDS: TBO-FILGRASTIM 480 MCG/0.8 ML DISP.SYRIN SQ ONE ×2 (09:26→09:35)
[2024-09-20] MEDS ORDERED: TBO-FILGRASTIM 300 MCG/0.5 ML DISP.SYRINGE SQ ONE (10:00)
[2024-09-20 15:03] VITALS: BP 145/67; PULSE 70; RESP 20; TEMP 98.1
== END 2024-09-20 09:50 | disposition home or self-care (01) ==
LOC: JONCNONCHE 09:25 → J7W 09:26 → JONCNONCHE 09:50
PROVIDERS: ATTEND Internal Medicine Hematology & Oncology
PROC: 3E013GC Introduction of Other Therapeutic Substance into Subcutaneous Tissue, Percutaneous Approach (ICD-10-PCS; principal; 2024-09-20)
DX: C25.9 Malignant neoplasm of pancreas, unspecified (principal); Z76.89 Persons encountering health services in other specified circumstances
CPT/HCPCS: 96372; J1447

== ENCOUNTER 2024-09-21 09:55 | Day surgery (SDC) | payer OTHER ==
[2024-09-21] MEDS: TBO-FILGRASTIM 300 MCG/0.5 ML DISP.SYRINGE SQ ONE (09:57)
[2024-09-21 10:18] VITALS: BP 142/82; PULSE 88; RESP 18; TEMP 98.2
== END 2024-09-21 10:05 | disposition home or self-care (01) ==
LOC: JONCCHEMO 09:55 → J7W 10:54
PROVIDERS: ATTEND Internal Medicine Hematology & Oncology
PROC: 3E013GC Introduction of Other Therapeutic Substance into Subcutaneous Tissue, Percutaneous Approach (ICD-10-PCS; principal; 2024-09-21)
DX: C25.9 Malignant neoplasm of pancreas, unspecified (principal); Z76.89 Persons encountering health services in other specified circumstances
CPT/HCPCS: 96372; J1447

== ENCOUNTER 2024-09-26 08:53 | Day surgery (SDC) | payer OTHER ==
[2024-09-26 09:20] LABS: HEMATOCRIT 32.4 % (34.1-44.9); MCHC 30.9 g/dl (32.2-35.5); MEAN CELL VOLUME 92.8 fl (79.4-94.8); MEAN PLT VOLUME 10.9 fl (9.4-12.3); PLATELET COUNT 194 x10^3/uL (182-369); RDW 15.6 % (12.4-16.6)
[2024-09-26 09:42] LABS: CHLORIDE 107 mmol/L (98-107); POTASSIUM 4.5 mmol/L (3.5-5.1); SODIUM 141 mmol/L (136-145)
[2024-09-26 09:43] LABS: BLOOD UREA NITROGEN 15.1 mg/dL (7-18)
[2024-09-26 09:44] LABS: ALBUMIN 3.3 g/dl (3.4-5.0); ANION GAP 6 mmol/L (4-13); CALCIUM 9.1 mg/dL (8.5-10.1); CO2 29 mmol/L (21-32); GLUCOSE,RANDOM 84 mg/dL (74-106)
[2024-09-26 09:47] LABS: SGOT/AST 33 U/L (15-37); SGPT/ALT 42 U/L (13-61)
[2024-09-26 09:49] LABS: BILIRUBIN,TOTAL 0.3 mg/dL (0.2-1); TOT PROT 6.7 g/dl (6.4-8.2)
[2024-09-26 09:53] LABS: MONOCYTE # 0.67 x10^3/uL (0.24-0.86)
[2024-09-26 09:54] LABS: ALK PHOS 240 U/L (45-117)
[2024-09-26 09:55] LABS: MAGNESIUM 1.9 mg/dL (1.8-2.4)
[2024-09-26] MEDS: SODIUM CHLORIDE 250 ML IV ONE (10:23)
[2024-09-26] MEDS: DEXAMETHASONE SODIUM PHOSPHATE 10 MG in SODIUM CHLORIDE 50 ML IVPB ONE (10:55)
[2024-09-26] MEDS: PALONOSETRON HCL 0.25 MG/5 ML VIAL IVPUSH ONE (11:18)
[2024-09-26] MEDS: PACLITAXEL PROTEIN BOUND IVPB ONE (12:07)
[2024-09-26] MEDS: SODIUM CHLORIDE IVPB ONE ×2 (12:07→12:46)
[2024-09-26] MEDS: GEMCITABINE HCL IVPB ONE (12:46)
[2024-09-26] MEDS: PORTA CATH FLUSH 10 ML IVPUSH PRN (13:20)
[2024-09-26 14:41] LABS: URINE APPEARANCE CLEAR; URINE BILIRUBIN NEGATIVE (NEGATIVE); URINE COLOR YELLOW; URINE GLUCOSE (UA) NEGATIVE (NEGATIVE); URINE KETONE NEGATIVE (NEGATIVE); URINE LEUK ESTERASE NEGATIVE (NEGATIVE); URINE NITRITE NEGATIVE (NEGATIVE); URINE PROTEIN NEGATIVE (NEGATIVE); URINE UROBILINOGEN 0.2 mg/dL (0.2-1.0)
[2024-09-26 17:09] VITALS: BP 135/75; PULSE 85; RESP 20; TEMP 98
== END 2024-09-26 13:30 | disposition home or self-care (01) ==
LOC: JONCNONCHE 08:53 → J7W 08:53 → JONCNONCHE 13:30
PROVIDERS: ATTEND Internal Medicine Hematology & Oncology
DX: Z51.11 Encounter for antineoplastic chemotherapy (principal); C25.9 Malignant neoplasm of pancreas, unspecified
CPT/HCPCS: 36415; 80053; 81003; 83735; 85025; 87086; 96375; 96413; 96417; J9264

== ENCOUNTER 2024-10-04 11:32 | Day surgery (SDC) | payer OTHER ==
[2024-10-04] MEDS: TBO-FILGRASTIM 300 MCG/0.5 ML DISP.SYRINGE SQ ONE (11:38)
[2024-10-04 18:13] VITALS: BP 136/80; PULSE 88; RESP 20; TEMP 98.3
== END 2024-10-04 11:50 | disposition home or self-care (01) ==
LOC: JONCNONCHE 11:32
PROVIDERS: ATTEND Internal Medicine Hematology & Oncology
PROC: 3E013GC Introduction of Other Therapeutic Substance into Subcutaneous Tissue, Percutaneous Approach (ICD-10-PCS; principal; 2024-10-04)
DX: C25.9 Malignant neoplasm of pancreas, unspecified (principal)
CPT/HCPCS: 96372; J1447

== ENCOUNTER 2024-10-05 10:40 | Day surgery (SDC) | payer OTHER ==
[2024-10-05] MEDS: TBO-FILGRASTIM 300 MCG/0.5 ML DISP.SYRINGE SQ ONE (10:52)
[2024-10-05 16:49] VITALS: BP 124/67; PULSE 98; RESP 20; TEMP 98.1
== END 2024-10-05 11:00 | disposition home or self-care (01) ==
LOC: JONCNONCHE 10:40
PROVIDERS: ATTEND Internal Medicine Hematology & Oncology
PROC: 3E013GC Introduction of Other Therapeutic Substance into Subcutaneous Tissue, Percutaneous Approach (ICD-10-PCS; principal; 2024-10-05)
DX: C25.9 Malignant neoplasm of pancreas, unspecified (principal); Z76.89 Persons encountering health services in other specified circumstances
CPT/HCPCS: 96372; J1447

== ENCOUNTER 2024-10-06 09:45 | Day surgery (SDC) | payer OTHER ==
[2024-10-06] MEDS: TBO-FILGRASTIM 300 MCG/0.5 ML DISP.SYRINGE SQ ONE (10:48)
[2024-10-06 12:37] VITALS: BP 110/68; PULSE 87; RESP 18; TEMP 98
== END 2024-10-06 11:00 | disposition home or self-care (01) ==
LOC: J7W 09:45 → JONCNONCHE 09:45
PROVIDERS: ATTEND Internal Medicine Hematology & Oncology
PROC: 3E013GC Introduction of Other Therapeutic Substance into Subcutaneous Tissue, Percutaneous Approach (ICD-10-PCS; principal; 2024-10-06)
DX: C25.9 Malignant neoplasm of pancreas, unspecified (principal); Z76.89 Persons encountering health services in other specified circumstances
CPT/HCPCS: 96372; J1447

== ENCOUNTER 2024-10-10 08:10 | Day surgery (SDC) | payer OTHER ==
[2024-10-10 09:33] LABS: HEMATOCRIT 31.6 % (34.1-44.9); HEMOGLOBIN 9.7 g/dL (11.2-15.7); MCHC 30.7 g/dl (32.2-35.5); MEAN CELL VOLUME 94.6 fl (79.4-94.8); MEAN PLT VOLUME 10.6 fl (9.4-12.3); PLATELET COUNT 183 x10^3/uL (182-369); RDW 16.6 % (12.4-16.6)
[2024-10-10 09:54] LABS: CHLORIDE 112 mmol/L (98-107); POTASSIUM 3.8 mmol/L (3.5-5.1); SODIUM 143 mmol/L (136-145)
[2024-10-10 09:56] LABS: ALBUMIN 3.2 g/dl (3.4-5.0); ANION GAP 7 mmol/L (4-13); BLOOD UREA NITROGEN 11.3 mg/dL (7-18); CALCIUM 9.4 mg/dL (8.5-10.1); CO2 24 mmol/L (21-32); GLUCOSE,RANDOM 112 mg/dL (74-106); MAGNESIUM 1.8 mg/dL (1.8-2.4)
[2024-10-10 09:59] LABS: SGOT/AST 25 U/L (15-37); SGPT/ALT 28 U/L (13-61)
[2024-10-10 10:01] LABS: BILIRUBIN,TOTAL 0.3 mg/dL (0.2-1); TOT PROT 6.6 g/dl (6.4-8.2)
[2024-10-10 10:02] LABS: ALK PHOS 217 U/L (45-117)
[2024-10-10] MEDS: SODIUM CHLORIDE 250 ML IV ONE (10:28)
[2024-10-10] MEDS: DEXAMETHASONE SODIUM PHOSPHATE 10 MG in SODIUM CHLORIDE 50 ML IVPB ONE (10:55)
[2024-10-10] MEDS: PALONOSETRON HCL 0.25 MG/5 ML VIAL IVPUSH ONE (10:57)
[2024-10-10] MEDS: PACLITAXEL PROTEIN BOUND IVPB ONE (12:17)
[2024-10-10] MEDS: SODIUM CHLORIDE IVPB ONE ×2 (12:17→13:01)
[2024-10-10 12:41] VITALS: RESP 20; TEMP 98.8
[2024-10-10] MEDS: GEMCITABINE HCL IVPB ONE (13:01)
[2024-10-10] MEDS: PORTA CATH FLUSH 10 ML IVPUSH PRN (13:40)
[2024-10-10 14:12] VITALS: BP 126/67; PULSE 66
== END 2024-10-10 14:00 | disposition home or self-care (01) ==
LOC: JONCCHEMO 08:10
PROVIDERS: ATTEND Internal Medicine Hematology & Oncology
DX: Z51.11 Encounter for antineoplastic chemotherapy (principal); C25.9 Malignant neoplasm of pancreas, unspecified
CPT/HCPCS: 36415; 80053; 83735; 85025; 96367; 96375; 96413; 96417; J9264

== ENCOUNTER 2024-10-20 10:25 | Day surgery (SDC) | payer OTHER ==
[2024-10-20] MEDS: TBO-FILGRASTIM 300 MCG/0.5 ML DISP.SYRINGE SQ ONE (10:30)
[2024-10-20 11:38] VITALS: BP 99/59; PULSE 93; RESP 20; TEMP 98.2
== END 2024-10-20 10:45 | disposition home or self-care (01) ==
LOC: JONCNONCHE 10:25
PROVIDERS: ATTEND Internal Medicine Hematology & Oncology
PROC: 3E023GC Introduction of Other Therapeutic Substance into Muscle, Percutaneous Approach (ICD-10-PCS; principal; 2024-10-20)
DX: C25.9 Malignant neoplasm of pancreas, unspecified (principal); Z76.89 Persons encountering health services in other specified circumstances
CPT/HCPCS: 96372; J1447

== ENCOUNTER 2024-10-23 08:42 | Day surgery (SDC) | payer OTHER ==
[2024-10-23] MEDS: TBO-FILGRASTIM 300 MCG/0.5 ML DISP.SYRINGE SQ ONE (08:46)
[2024-10-23 08:57] VITALS: BP 107/66; PULSE 95; RESP 18; TEMP 98.6
== END 2024-10-23 09:00 | disposition home or self-care (01) ==
LOC: JONCNONCHE 08:42 → J7W 08:42 → JONCNONCHE 09:00
PROVIDERS: ATTEND Internal Medicine Hematology & Oncology
PROC: 3E013GC Introduction of Other Therapeutic Substance into Subcutaneous Tissue, Percutaneous Approach (ICD-10-PCS; principal; 2024-10-23)
DX: C25.9 Malignant neoplasm of pancreas, unspecified (principal); Z76.89 Persons encountering health services in other specified circumstances
CPT/HCPCS: 96372; J1447

== ENCOUNTER 2024-11-27 09:10 | Day surgery (SDC) | payer OTHER ==
[~2024-11-27 09:10] MED LIST changes: +DEXAMETHASONE SODIUM PHOSPHATE 10 MG in SODIUM CHLORIDE 50 ML IVPB ONE; +GEMCITABINE HCL IVPB ONE; +PACLITAXEL PROTEIN BOUND IVPB ONE; +PALONOSETRON HCL 0.25 MG/5 ML VIAL IVPUSH ONE; +SODIUM CHLORIDE IVPB ONE
[2024-11-27] MEDS: TBO-FILGRASTIM 300 MCG/0.5 ML DISP.SYRINGE SQ ONE (09:34)
[2024-11-27 09:37] VITALS: BP 125/79; PULSE 96; RESP 20; TEMP 98
== END 2024-11-27 09:35 | disposition home or self-care (01) ==
LOC: JONCNONCHE 09:10 → J7W 09:11 → JONCNONCHE 09:35
PROVIDERS: ATTEND Internal Medicine Hematology & Oncology
PROC: 3E013GC Introduction of Other Therapeutic Substance into Subcutaneous Tissue, Percutaneous Approach (ICD-10-PCS; principal; 2024-11-27)
DX: C25.9 Malignant neoplasm of pancreas, unspecified (principal); Z76.89 Persons encountering health services in other specified circumstances
CPT/HCPCS: 96372; J1447

== ENCOUNTER 2024-12-12 10:15 | Day surgery (SDC) | payer OTHER ==
[2024-12-12] MEDS: SODIUM CHLORIDE 250 ML IV ONE (10:37)
[2024-12-12] MEDS: DEXAMETHASONE SODIUM PHOSPHATE 10 MG in SODIUM CHLORIDE 50 ML IVPB ONE (10:45)
[2024-12-12] MEDS: PALONOSETRON HCL 0.25 MG/5 ML VIAL IVPUSH ONE (10:45)
[2024-12-12] MEDS: SODIUM CHLORIDE IVPB ONE ×2 (11:47→12:44)
[2024-12-12] MEDS: PACLITAXEL PROTEIN BOUND IVPB ONE (11:47)
[2024-12-12] MEDS: GEMCITABINE HCL IVPB ONE (12:44)
[2024-12-12] MEDS: PORTA CATH FLUSH 10 ML IVPUSH PRN (13:25)
[2024-12-12 13:33] VITALS: RESP 18; TEMP 98.2
[2024-12-12 13:43] VITALS: BP 123/66; PULSE 68
== END 2024-12-12 13:30 | disposition home or self-care (01) ==
LOC: JONCCHEMO 10:15
PROVIDERS: ATTEND Internal Medicine Hematology & Oncology
DX: Z51.11 Encounter for antineoplastic chemotherapy (principal); C25.1 Malignant neoplasm of body of pancreas
CPT/HCPCS: J9264

== ENCOUNTER 2024-12-15 12:12 | Day surgery (SDC) | payer OTHER ==
[2024-12-15] MEDS: TBO-FILGRASTIM 300 MCG/0.5 ML DISP.SYRINGE SQ ONE (12:15)
[2024-12-15 13:09] VITALS: BP 119/54; PULSE 81; RESP 20; TEMP 97.9
== END 2024-12-15 12:25 | disposition home or self-care (01) ==
LOC: JONCNONCHE 12:12
PROVIDERS: ATTEND Internal Medicine Hematology & Oncology
PROC: 3E033GC Introduction of Other Therapeutic Substance into Peripheral Vein, Percutaneous Approach (ICD-10-PCS; principal; 2024-12-15)
DX: C25.9 Malignant neoplasm of pancreas, unspecified (principal); Z76.89 Persons encountering health services in other specified circumstances
CPT/HCPCS: J1447

== ENCOUNTER 2024-12-26 08:48 | Day surgery (SDC) | payer OTHER ==
[2024-12-26] MEDS: SODIUM CHLORIDE 250 ML IV ONE (09:30)
[2024-12-26] MEDS: PALONOSETRON HCL 0.25 MG/5 ML VIAL IVPUSH ONE (10:06)
[2024-12-26] MEDS: DEXAMETHASONE SODIUM PHOSPHATE 10 MG in SODIUM CHLORIDE 50 ML IVPB ONE (10:10)
[2024-12-26] MEDS: PACLITAXEL PROTEIN BOUND IVPB ONE (10:38)
[2024-12-26] MEDS: SODIUM CHLORIDE IVPB ONE ×2 (10:38→11:25)
[2024-12-26] MEDS: GEMCITABINE HCL IVPB ONE (11:25)
[2024-12-26] MEDS: PORTA CATH FLUSH 10 ML IVPUSH PRN (12:05)
[2024-12-26 17:38] VITALS: RESP 18; TEMP 98.3
[2024-12-26 17:43] VITALS: BP 136/78; PULSE 75
== END 2024-12-26 12:15 | disposition home or self-care (01) ==
LOC: JONCCHEMO 08:48 → J7W 08:53 → JONCCHEMO 12:15
PROVIDERS: ATTEND Internal Medicine Hematology & Oncology
DX: Z51.11 Encounter for antineoplastic chemotherapy (principal); C25.9 Malignant neoplasm of pancreas, unspecified
CPT/HCPCS: 96375; 96413; 96417; J9264

== ENCOUNTER 2024-12-28 09:29 | Day surgery (SDC) | payer OTHER ==
[2024-12-28] MEDS: TBO-FILGRASTIM 300 MCG/0.5 ML DISP.SYRINGE SQ ONE (09:40)
[2024-12-28 16:19] VITALS: BP 117/63; PULSE 87; RESP 20; TEMP 97.8
== END 2024-12-28 10:30 | disposition home or self-care (01) ==
LOC: JONCNONCHE 09:29 → J7W 13:53
PROVIDERS: ATTEND Internal Medicine Hematology & Oncology
PROC: 3E013GC Introduction of Other Therapeutic Substance into Subcutaneous Tissue, Percutaneous Approach (ICD-10-PCS; principal; 2024-12-28)
DX: C25.9 Malignant neoplasm of pancreas, unspecified (principal); Z76.89 Persons encountering health services in other specified circumstances
CPT/HCPCS: 96372; J1447

== ENCOUNTER 2025-01-16 09:11 | Day surgery (SDC) | payer OTHER ==
[~2025-01-16 09:11] MED LIST changes: -DEXAMETHASONE SODIUM PHOSPHATE 10 MG in SODIUM CHLORIDE 50 ML IVPB ONE; -GEMCITABINE HCL IVPB ONE; +MAGNESIUM SULF 50% (8.12 MEQ/2 ML-1 GM VIAL) IVPB ONE; -PACLITAXEL PROTEIN BOUND IVPB ONE; -PALONOSETRON HCL 0.25 MG/5 ML VIAL IVPUSH ONE; -SODIUM CHLORIDE 250 ML IV ONE; -SODIUM CHLORIDE IVPB ONE
[2025-01-16] MEDS: MAGNESIUM SULFATE IN WATER 2 GM/50 ML IVPB IVPB ONE (09:28)
[2025-01-16] MEDS: SODIUM CHLORIDE 250 ML IV ONE (09:28)
[2025-01-16] MEDS: POTASSIUM CHLORIDE TABS 20 MEQ TABLET.ER (FP) PO ONE (09:49)
[2025-01-16] MEDS: DEXAMETHASONE SODIUM PHOSPHATE 10 MG in SODIUM CHLORIDE 50 ML IVPB ONE (10:25)
[2025-01-16] MEDS: PALONOSETRON HCL 0.25 MG/5 ML VIAL IVPUSH ONE (10:25)
[2025-01-16] MEDS: PACLITAXEL PROTEIN BOUND IVPB ONE (10:54)
[2025-01-16] MEDS: SODIUM CHLORIDE IVPB ONE (10:54)
[2025-01-16] MEDS: GEMCITABINE HCL 1,672 MG in SODIUM CHLORIDE 250 ML IV ONE (11:33)
[2025-01-16 15:50] VITALS: BP 120/70; PULSE 74; RESP 20; TEMP 98.5
== END 2025-01-16 12:30 | disposition home or self-care (01) ==
LOC: J7W 09:11 → JONCCHEMO 09:11
PROVIDERS: ATTEND Internal Medicine Hematology & Oncology
DX: Z51.11 Encounter for antineoplastic chemotherapy (principal); C25.9 Malignant neoplasm of pancreas, unspecified
CPT/HCPCS: J9264

== ENCOUNTER 2025-01-26 09:45 | Day surgery (SDC) | payer OTHER ==
[2025-01-26] MEDS: TBO-FILGRASTIM 300 MCG/0.5 ML DISP.SYRINGE SQ ONE (09:53)
[2025-01-26 13:12] VITALS: BP 121/72; PULSE 88; RESP 20; TEMP 97.8
== END 2025-01-26 10:05 | disposition home or self-care (01) ==
LOC: JONCNONCHE 09:45 → J7W 10:38
PROVIDERS: ATTEND Internal Medicine Hematology & Oncology
PROC: 3E013GC Introduction of Other Therapeutic Substance into Subcutaneous Tissue, Percutaneous Approach (ICD-10-PCS; principal; 2025-01-26)
DX: C25.1 Malignant neoplasm of body of pancreas (principal); Z76.89 Persons encountering health services in other specified circumstances
CPT/HCPCS: 96372; J1447

== ENCOUNTER 2025-02-16 08:45 | Day surgery (SDC) | payer OTHER ==
[2025-02-16] MEDS: TBO-FILGRASTIM 300 MCG/0.5 ML DISP.SYRINGE SQ ONE (08:57)
[2025-02-16 10:05] VITALS: BP 145/85; PULSE 87; RESP 20; TEMP 98.7
== END 2025-02-16 10:00 | disposition home or self-care (01) ==
LOC: JONCNONCHE 08:45
PROVIDERS: ATTEND Internal Medicine Hematology & Oncology
PROC: 3E013GC Introduction of Other Therapeutic Substance into Subcutaneous Tissue, Percutaneous Approach (ICD-10-PCS; principal; 2025-02-16)
DX: C25.1 Malignant neoplasm of body of pancreas (principal); Z76.89 Persons encountering health services in other specified circumstances
CPT/HCPCS: 96372; J1447

== ENCOUNTER 2025-03-12 08:58 | Day surgery (SDC) | payer OTHER ==
[2025-03-12] MEDS: TBO-FILGRASTIM 300 MCG/0.5 ML DISP.SYRINGE SQ ONE (08:35)
[2025-03-12 09:18] VITALS: BP 132/81; PULSE 81; RESP 20; TEMP 98.3
== END 2025-03-12 09:00 | disposition home or self-care (01) ==
LOC: JONCNONCHE 08:58
PROVIDERS: ATTEND Internal Medicine Hematology & Oncology
PROC: 3E013GC Introduction of Other Therapeutic Substance into Subcutaneous Tissue, Percutaneous Approach (ICD-10-PCS; principal; 2025-03-12)
DX: C25.1 Malignant neoplasm of body of pancreas (principal); Z76.89 Persons encountering health services in other specified circumstances
CPT/HCPCS: 96372; J1447

== ENCOUNTER 2025-03-19 09:18 | Day surgery (SDC) | payer OTHER ==
[~2025-03-19 09:18] MED LIST changes: +DEXAMETHASONE SODIUM PHOSPHATE 10 MG in SODIUM CHLORIDE 50 ML IVPB ONE; +GEMCITABINE HCL IV ONE; -MAGNESIUM SULF 50% (8.12 MEQ/2 ML-1 GM VIAL) IVPB ONE; +PACLITAXEL PROTEIN BOUND IVPB ONE; +PALONOSETRON HCL 0.25 MG/5 ML VIAL IVPUSH ONE; +SODIUM CHLORIDE 250 ML IV ONE; +SODIUM CHLORIDE IV ONE; +SODIUM CHLORIDE IVPB ONE
[2025-03-19 09:36] LABS: MCHC 32.3 g/dl (32.2-35.5); MEAN CELL VOLUME 101.9 fl (79.4-94.8); MEAN PLT VOLUME 11.8 fl (9.4-12.3); RDW 25.2 % (12.4-16.6)
[2025-03-19] MEDS: SODIUM CHLORIDE 250 ML IV ONE (10:07)
[2025-03-19 10:33] LABS: GLUCOSE,RANDOM 168.0 mg/dL (74-106)
[2025-03-19 10:34] LABS: TOT PROT 7.0 g/dl (6.4-8.2)
[2025-03-19 10:35] LABS: CO2 16.0 mmol/L (21-32)
[2025-03-19 10:36] LABS: ALK PHOS 200.0 U/L (40-150)
[2025-03-19 10:39] LABS: CREATININE 1.36 mg/dL (0.55-1.3); SGOT/AST 44.0 U/L (5-34); SGPT/ALT 20.0 U/L (0-55)
[2025-03-19] MEDS: MAGNESIUM 2GM/50ML STERILE WATER IVPB IVPB ONE (11:06)
[2025-03-19] MEDS: PALONOSETRON HCL 0.25 MG/5 ML VIAL IVPUSH ONE (12:24)
[2025-03-19] MEDS: DEXAMETHASONE SODIUM PHOSPHATE 10 MG in SODIUM CHLORIDE 50 ML IVPB ONE (12:25)
[2025-03-19] MEDS: PACLITAXEL PROTEIN BOUND IVPB ONE (12:41)
[2025-03-19] MEDS: SODIUM CHLORIDE IVPB ONE (12:41)
[2025-03-19] MEDS: GEMCITABINE HCL 1,197 MG in SODIUM CHLORIDE 250 ML IV ONE (13:16)
[2025-03-19 15:37] VITALS: TEMP 97.6
[2025-03-19 15:46] VITALS: BP 128/77; PULSE 82; RESP 16
[2025-03-19] MEDS ORDERED: PORTA CATH FLUSH 10 ML IVPUSH PRN (15:46)
== END 2025-03-19 14:00 | disposition home or self-care (01) ==
LOC: JONCCHEMO 09:18 → J7W 09:19 → JONCCHEMO 14:00
PROVIDERS: ATTEND Internal Medicine Hematology & Oncology
PROC: 3E04305 Introduction of Other Antineoplastic into Central Vein, Percutaneous Approach (ICD-10-PCS; principal; 2025-03-19)
PROC: 3E043GC Introduction of Other Therapeutic Substance into Central Vein, Percutaneous Approach (ICD-10-PCS; 2025-03-19)
DX: Z51.11 Encounter for antineoplastic chemotherapy (principal); C25.1 Malignant neoplasm of body of pancreas
CPT/HCPCS: 36415; 80053; 83735; 85025; J9264